=== PATIENT | female | born 1975 | race Caucasian/White ===

== ENCOUNTER 2020-10-04 06:11 | Emergency (ER) | payer SELFPAY ==
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
[2020-10-04 06:31] VITALS: BP 139/76; PULSE 96; RESP 20; TEMP 36.7; O2SAT 96
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
[2020-10-04] MEDS: KETOROLAC (*BKC) 60 MG/2 ML VIAL IM (06:45)
[2020-10-04] MEDS: ONDANSETRON HCL ODT 4 MG TABLET PO (06:46)
[2020-10-04 07:24] LABS: Add Urine Microscopic? NO; Appearance Urine Clear (Clear); Bilirubin Urine Negative (Negative); Blood Urine Negative (Negative); Color Urine Yellow (Yellow); Glucose Urine UA Negative (Negative); Ketones Urine Negative (Negative); Leukocyte Esterase Ur Negative (Negative); Nitrate Urine Negative (Negative); Protein Urine Negative (Negative); Specific Grav Ur <= 1.005 (1.010-1.020); Urobilinogen Urine 0.2 mg/dL (0.2-1.0); pH Urine 5.5 (5.0-8.0)
[2020-10-04 07:42] VITALS: RESP 16
== END 2020-10-04 07:43 | disposition home or self-care (01) ==
PROVIDERS: Emergency Medicine; Emergency Provider Emergency Medicine
DX: S20.01XA Contusion of right breast, initial encounter (principal); V89.2XXA Person injured in unspecified motor-vehicle accident, traffic, initial encounter
CPT/HCPCS: 71101; 81003; 96372; 99283; A9270; J1885

== ENCOUNTER 2023-02-15 18:49 | Emergency (ER) | payer OTHER, SELFPAY ==
[2023-02-15 18:54] VITALS: BP 117/95; PULSE 111; TEMP 36.6; O2SAT 94
--- NOTE | 2023-02-15 19:04 | ED.GENADULT ---
HPI - General Adult General Chief complaint: Wound/Laceration Stated complaint: head laceration Time Seen by Provider: 02/15/23 18:53 History of Present Illness HPI narrative: 47yo woman presents with laceration to center forehead after working on a garage door bracket when a spring came loose and flung up striking her in the forehead. No LOC. Bleeding controlled. Related Data Home Medications Medication Instructions Recorded Confirmed No Home Medications 02/15/23 02/15/23 Allergies Allergy/AdvReac Type Severity Reaction Status Date / Time Penicillins Allergy Unknown Verified 12/29/16 20:23 Review of Systems Review of Systems: All systems reviewed & are unremarkable except as noted in HPI and below Constitutional: Constitutional: Denies chills and Denies fever(s) ENT: Denies dysphagia Cardiovascular: Cardiovascular: Denies chest pain Respiratory: Respiratory: Denies dyspnea PMFSH Past Medical History Medical History Migraine Family History Family History Mother Diabetes mellitus Myocardial infarction Father No problems noted. Social History Social History Smoking packs per day: 1 Smoking cigarettes per day: 20.0 Smoking status: Current every day smoker Tobacco type: cigarettes Exam Const: General: healthy appearing and no acute distress Nutritional Appearance: well nourished HENMT: Other: 5 cm vertical laceration to the center of the forehead. partial thickness. Eyes: Conjunctivae: conjunctivae normal EOM: EOMs intact bilaterally Resp: Effort & Inspection: normal respiratory effort Cardio: Rate: regular rate Skin: General skin exam: normal color, no jaundice and no pallor Neuro: General: patient oriented x3 and moves all extremities Gait exam (Neuro): Normal gait present Course Vital Signs Vital signs: Vital Signs Temperature 36.6 C 02/15/23 18:54 Pulse Rate 111 H 02/15/23 18:54 Blood Pressure 117/95 H 02/15/23 18:54 Pulse Oximetry 94 02/15/23 18:54 Oxygen Delivery Room Air 02/15/23 18:54 Temperature 36.6 C 02/15/23 18:54 Pulse Rate 94 08/10/23 20:06 Respiratory Rate 20 02/15/23 20:06 Blood Pressure 148/88 H 02/15/23 20:06 Pulse Oximetry 98 02/15/23 20:06 Oxygen Delivery Room Air 02/15/23 20:06 Procedures Laceration Laceration 1: Date: 02/15/23 Time: 20:46 Site: scalp Size (cm): 5 Description: linear Depth: involves muscle layer Local Anesthetic: lidocaine 1% and with epi Amount of anesthesia used (mL): 10 Pre-repair: wound explored and irrigated extensively ====== Skin Level ====== Skin layer closed with: vicryl Size (cm): 4-0 Number of sutures: 9 Technique: simple, interrupted and running ====== Subcutaneous Layer ====== Subcutaneous layer closed with: vicryl Size: 4-0 Number of sutures: 3 Technique: simple, interrupted ====== Muscle Layer ====== Muscle layer closed with: vicryl Size: 4-0 Number of sutures: 3 Technique: simple, interrupted ====== Tendon Layer ====== Dressing: nonadherent dressing Medical Decision Making MDM Narrative Medical decision making narrative: laceration, amenable to suture repair, well tolerated DDx contusion, no evidence of muscle involvement, fracture, or intracranial injury Vital Signs Vital Signs: Vital Signs Temperature 36.6 C 02/15/23 18:54 Pulse Rate 111 H 02/15/23 18:54 Blood Pressure 117/95 H 02/15/23 18:54 Pulse Oximetry 94 02/15/23 18:54 Oxygen Delivery Room Air 02/15/23 18:54 Temperature 36.6 C 02/15/23 18:54 Pulse Rate 94 02/15/23 20:06 Respiratory Rate 20 02/15/23 20:06 Blood Pressure
[2023-02-15] MEDS: LIDO 1%/EPINEPHRINE 1:100,000 20 ML VIAL 10 ML INFILTRATE (19:24)
[2023-02-15 20:06] VITALS: BP 148/88; PULSE 94; RESP 20; O2SAT 98
[2023-02-15] MEDS: TETANUS,DIPHTHERIA,AC PERTUSSIS ADULT 0.5 ML (ADACEL) IM (20:09)
[2023-02-15] MEDS: IBUPROFEN 400 MG TABLET 800 MG PO (20:13)
== END 2023-02-15 20:55 | disposition home or self-care (01) ==
PROVIDERS: Emergency Provider Emergency Medicine
DX: S01.81XA Laceration without foreign body of other part of head, initial encounter (principal); Z23 Encounter for immunization; F17.210 Nicotine dependence, cigarettes, uncomplicated; W45.8XXA Other foreign body or object entering through skin, initial encounter
CPT/HCPCS: 13132; 90471; 90715; 99282; A9270

== ENCOUNTER 2023-11-26 07:00 | Outpatient (CLI) | payer BC, SELFPAY ==
[2023-11-26 07:24] LABS: Basophils Absolute Auto 0.09 K/mm3 (0.00-0.10); Basophils Percent Auto 1.1 % (0.0-1.0); Eosinophils Absolute Auto 0.31 K/mm3 (0.02-0.50); Eosinophils Percent Auto 3.8 % (1.0-6.0); Hematocrit 46.6 % (35.0-49.0); Hemoglobin 14.9 g/dL (12.0-15.0); Immature Granulocyte Absolute 0.04 K/mm3 (0.00-0.00); Immature Granulocyte Percent A 0.5 % (0.0-0.0); Lymphocytes Absolute Auto 2.47 K/mm3 (1.10-4.50); Lymphocytes Percent Auto 30.4 % (18.0-42.0); Mean Corpuscular Hemoglobin 29.3 pg (27.0-31.0); Mean Corpuscular Volume 91.6 fL (78.0-102.0); Mean Platelet Volume 12.7 fl (9.2-11.8); Monocytes Absolute Auto 0.56 K/mm3 (0.10-0.90); Monocytes Percent Auto 6.9 % (2.0-11.0); Neutrophils Absolute Auto 4.66 K/mm3 (1.70-7.20); Neutrophils Percent Auto 57.3 % (50.0-70.0); Platelet Count Result 170 K/mm3 (150-420); Red Blood Count 5.09 M/mm3 (4.20-5.40); Red Cell Distribution Width 13.5 % (11.6-14.4); White Blood Count 8.1 K/mm3 (4.8-10.8)
[2023-11-26 23:04] LABS: Alanine Aminotransferase 37 U/L (14-59); Albumin Level 3.5 g/dL (3.4-5.0); Alkaline Phosphatase 93 U/L (46-116); Anion Gap 12 mmol/L (4-12); Aspartate Amino Transferase 39 U/L (15-37); Bilirubin,Total 0.9 mg/dL (0.00-1.00); Blood Urea Nitrogen 15 mg/dL (7-18); Calcium 9.3 mg/dL (8.5-10.1); Carbon Dioxide 24 mmol/L (21-32); Chloride 101 mmol/L (98-108); Cholesterol 288 mg/dL (0-200); Estimated Glomerular Filt Rate > 60; Glucose 91 mg/dL (70-99); HDL Direct 50 mg/dL (40-60); LDL Cholesterol Calculated 216 mg/dL (<130); Osmolality Calculated 284 mOsm/kg (285-295); Potassium 4.7 mmol/L (3.5-5.1); Sodium 137 mmol/L (136-145); Thyroid Stimulating Hormone 1.75 uIU/mL (0.36-3.74); Total Protein 8.2 g/dL (6.4-8.2); Triglycerides 109 mg/dL (0-150)
== END 2023-11-26 07:01 | disposition home or self-care (01) ==
LOC: CHSLAB 07:04
PROVIDERS: PCP Family Medicine; Visit Provider Family Medicine
DX: R53.83 Other fatigue (principal); Z13.220 Encounter for screening for lipoid disorders
CPT/HCPCS: 36415; 80053; 80061; 84443; 85025

== ENCOUNTER 2023-12-04 07:19 | Outpatient (CLI) | payer BC, SELFPAY ==
--- NOTE | ~2023-12-04 | MM_ITS ---
EXAMINATION: MM screening jolanta BI w saqib HISTORY: Screening TECHNIQUE: Craniocaudal and mediolateral oblique 3-D tomosynthesis images were obtained and synthetic 2-D images were generated. CAD analysis was submitted and interpreted. COMPARISON: No prior mammogram is available for comparison at this institution. BREAST PARENCHYMAL COMPOSITION: The breasts are almost entirely fatty. FINDINGS: There is no evidence of suspicious mass, calcification, or architectural distortion to sugg est malignancy in either breast. There has been no suspicious interval change. IMPRESSION: 1. No mammographic evidence of malignancy. 2. Recommend routine screening mammography in one year. BI-RADS Category 1: Negative Reviewed, dictated and finalized at location B.
== END 2023-12-04 07:20 | disposition home or self-care (01) ==
LOC: CHSIMG 07:21
PROVIDERS: PCP Family Medicine; Visit Provider Family Medicine
DX: Z12.31 Encounter for screening mammogram for malignant neoplasm of breast (principal)
CPT/HCPCS: 77063; 77067

== ENCOUNTER 2024-02-23 14:36 | Inpatient (IN) | payer BC, SELFPAY ==
[2024-02-23] VITALS (17 sets, daily range): BP systolic 156–191; BP diastolic 81–98; PULSE 114–128; RESP 18–26; TEMP 36.6–37.3; O2SAT 87–95; BMI 45.2
--- NOTE | ~2024-02-23 | CT_ITS ---
EXAMINATION: CTA chest PE protocol DATE: 02/24/2024 17:46 INDICATION: Hypoxia, tachycardia, cough for 2 weeks. Nondiagnostic 02/23/2024 CT pulmonary scan TECHNIQUE: Computed tomography angiography (CTA) of the chest was performed with 100 mL Omnipaque-350 intravenous contrast timed to evaluate the pulmonary arteries. Coronal maximum intensity projection 3D-reconstructions were created by the technologist. Automated exposure control and iterative reconst ruction technique were employed. Exam dose: 1001.77 mGy-cm total exam DLP. COMPARISON: 02/23/2024 CT pulmonary scan FINDINGS: No CT evidence of pulmonary embolism is identified. Normal size and homogeneous enhancement of the thyroid gland. Bilateral probable reactive mild hilar and mediastinal lymphadenopathy associated with extensive patc hy groundglass infiltrates scattered throughout both upper lobes and middle lobe and superior segment of left lower lobe. IMPRESSION: No pulmonary embolism is detected Extensive prominent groundglass patchy infiltrates involving particularly the upper lobes and middle lobe and superior segment of the left lower, likely due to extensive bilateral pneumonia Reviewed, dictated and finalized at Location A. Reviewed, dictated and finalized at location J. IMPRESSION: No pulmonary embolism is detected Extensive prominent groundglass patchy infiltrates involving particularly the u pper lobes and middle lobe and superior segment of the left lower, likely due t o extensive bilateral pneumonia
--- NOTE | ~2024-02-23 | XR_ITS ---
XR chest 1V portable DATE: 02/23/2024 15:02 INDICATION: Shortness of breath, productive cough TECHNIQUE: Portable AP chest on 02/23/2024 at 1511 hours COMPARISON: 12/29/2016 2 view chest FINDINGS: Normal heart size. There are patchy bilateral pulmonary infiltrates in the central and lower lung zones, left greater th an right, suggesting bilateral pneumonia. Pulmonary edema would be a less likely consideration. No apparent significant pleural effusion. No pneumothorax. IMPRESSION: New bilateral pulmonary infiltrates, probably central and lower lung connolly, left greater than right; pneumonia is suggested given normal heart size Reviewed, dictated and finalized at location J. IMPRESSION: New bilateral pulmonary infiltrates, probably central and lower allen g connolly, left greater than right; pneumonia is suggested given normal heart si ze
--- NOTE | ~2024-02-23 | CT_ITS ---
EXAMINATION: CTA chest PE protocol DATE: 02/23/2024 18:04 INDICATION: Cough for 2 weeks. Tachycardia. Hypoxia. TECHNIQUE: Computed tomography angiography (CTA) of the chest was performed with 100 mL Omnipaque-350 intravenous contrast timed to evaluate the pulmonary arteries. Coronal maximum intensity projection 3D-reconstructions were created by the technologist. Automated exposure control and iterative reconst ruction technique were employed. Exam dose: 965.43 mGy-cm total exam DLP. COMPARISON: 02/23/2024 portable AP chest FINDINGS: Examination is not diagnostic for evaluating pulmonary emboli due to suboptimal contrast en hancement of the pulmonary arteries and considerable respiratory motion. Consider repeat examination when the patient is better able to control breathing or alternatively radiographic bone scan. There are extensive patchy groundglass and consolidative infiltrates throughout much of both lungs, m ost prominent in the upper lobes, especially on the left. There is prevascular, precarinal, left greater than right hilar lymphadenopathy, likely reactive. No thoracic aortic aneurysm or dissection. Normal heart size. No pericardial or pleural effusion. Normal morphology of the adrenal glands. Diffuse idiopathic skeletal hyperostosis of the thoracic and upper lumbar spine. No suspicious osteol ytic or osteoblastic lesions are noted. IMPRESSION: Extensive bilateral pneumonia Nondiagnostic examination for pulmonary emboli; consider repeat examination when the patient is donato r able to cooperate, or radionuclide perfusion scan Reviewed, dictated and finalized at Location [facility]. Reviewed, dictated and finalized at location J. IMPRESSION: Extensive bilateral pneumonia Nondiagnostic examination for pulmonary emboli; consider repeat examination whe n the patient is better able to cooperate, or radionuclide perfusion scan
--- NOTE | 2024-02-23 15:00 | ED.GENADULT ---
HPI - General Adult General Chief complaint: Shortness of Breath/Dyspnea Stated complaint: shortness of breath History of Present Illness HPI narrative: Patient with that past medical history of hypercholesteremia presents to the emergency department with complaint of acute cough. The patient reports that on her around 02/09/2024 she developed a similar cough was seen by her physician or urgent care and was treated with Medrol Dosepak antibiotics and inhaler. Her symptoms subsequently improved, however on or around 02/21 the cough returned. Associated symptoms include rhinorrhea, stress incontinence, and post-tussive emesis. Patient reports the cough is productive for yellow sputum. Patient is feeling superior right chest tightness and squeaking. She denies fever or chills. Denies substernal chest pain. Denies decreased urine output. Related Data Home Medications Medication Instructions Recorded Confirmed albuterol sulfate 90 mcg/actuation 2 inh inhalation Q4-6H PRN sob 02/23/24 02/23/24 aerosol inhaler atorvastatin 80 mg tablet 80 mg PO HS 02/23/24 02/23/24 Allergies Allergy/AdvReac Type Severity Reaction Status Date / Time Penicillins Allergy Unknown Unknown Verified 02/23/24 14:47 [facility] Past Medical History Medical History Migraine Family History Family History Mother Diabetes mellitus Myocardial infarction Father No problems noted. Social History Social History Smoking packs per day: 1 Smoking cigarettes per day: 20.0 Smoking status: Current every day smoker Tobacco type: cigarettes Exam Narrative: GEN: Awake, alert, and appropriate to situation. Coughing. Appears uncomfortable. HEENT: + rhinorrhea noted, mucous membranes moist. No scleral icterus or conjunctival injection. CV: Normal rate, regular rhythm, S1S2 no M/G/R. 2+ distal pulses all extremities. No peripheral edema noted. PULM: Cough but otherwise eupneic. Rales, squeaks, rhonchi on the Right. Left side clear. GI: Abdomen soft, non -tender to palpation. No rigidity, distention or guarding.? NEURO: Normal speech. No lateralizing or focal deficits noted. Course Vital Signs Vital signs: Vital Signs Temperature 37.3 C 02/23/24 14:37 Pulse Rate 125 H 02/23/24 14:37 Respiratory Rate 26 H 02/23/24 14:37 Blood Pressure 191/98 H 02/23/24 14:37 Pulse Oximetry 93 02/23/24 14:37 Oxygen Delivery Room Air 02/23/24 14:37 Temperature 37.3 C 02/23/24 14:37 Pulse Rate 125 H 02/23/24 14:37 Respiratory Rate 26 H 02/23/24 14:37 Blood Pressure 191/98 H 02/23/24 14:37 Pulse Oximetry 93 02/23/24 14:46 Oxygen Delivery Room Air 02/23/24 14:46 Medical Decision Making MDM Narrative Medical decision making narrative: Patient was placed in Room #:?6 Independent Historian: Pt's External Source Review: none Differential diagnosis includes but not limited to:? viral pneumonia, bacterial pneumonia Medications were Reviewed: outpatient medications Independently Interpreted by me: chest x-ray Medications, treatment, ED course: Vital signs show tachycardia and elevated respiratory rate. Physical exam is positive for adventitious lung sounds bilaterally right worse than left. Labs show leukocytosis to 19.1. respiratory panel negative.Initiated sepsis protocol including fluid bolus, antibiotics, blood cultures. Call the hospital service for admission. They accept under obs. Social situation impacting patients care: Lives at home with Shared decision making:? discussed that I am recommending she remain in the hospital for ongoing care Accepting physician: Dr. Josias Montes De Oca DISCHARGE DIAGNOSIS: bacterial pneumonia with sepsis DISPOSITION: observation status in the hospital CONDITION AT DISCHARGE:? stable Vit
[2024-02-23] MEDS: SODIUM CHLORIDE 0.9% IV 1,000 ML 999 ML IV CONT (15:14)
--- NOTE | 2024-02-23 15:14 | PC.NURSE ---
Covid test sent to lab
[2024-02-23 15:20] LABS: Basophils Absolute Auto 0.09 K/mm3 (0.00-0.10); Basophils Percent Auto 0.5 % (0.0-1.0); Eosinophils Absolute Auto 0.62 K/mm3 (0.02-0.50); Eosinophils Percent Auto 3.1 % (1.0-6.0); Hematocrit 44.2 % (35.0-49.0); Hemoglobin 14.7 g/dL (12.0-15.0); Immature Granulocyte Absolute 0.13 K/mm3 (0.00-0.00); Immature Granulocyte Percent A 0.7 % (0.0-0.0); Lymphocytes Absolute Auto 1.64 K/mm3 (1.10-4.50); Lymphocytes Percent Auto 8.3 % (18.0-42.0); Mean Corpuscular HGB Conc 33.3 g/dL (32-36); Mean Corpuscular Hemoglobin 29.5 pg (27.0-31.0); Mean Corpuscular Volume 88.8 fL (78.0-102.0); Mean Platelet Volume 12.1 fl (9.2-11.8); Monocytes Absolute Auto 0.99 K/mm3 (0.10-0.90); Neutrophils Absolute Auto 16.22 K/mm3 (1.70-7.20); Neutrophils Percent Auto 82.4 % (50.0-70.0); Platelet Count Result 243 K/mm3 (150-420); Red Blood Count 4.98 M/mm3 (4.20-5.40); Red Cell Distribution Width 13.5 % (11.6-14.4); White Blood Count 19.7 K/mm3 (4.8-10.8)
[2024-02-23 15:24] LABS: Add Urine Microscopic? NO; Appearance Urine Clear (Clear); Bilirubin Urine Negative (Negative); Blood Urine Negative (Negative); Color Urine Light Yellow (Yellow); Glucose Urine UA Negative (Negative); Ketones Urine Negative (Negative); Leukocyte Esterase Ur Negative (Negative); Nitrate Urine Negative (Negative); Protein Urine Negative (Negative); Urobilinogen Urine 0.2 mg/dL (0.2-1.0); pH Urine 7.5 (5.0-8.0)
[2024-02-23 15:34] LABS: Alanine Aminotransferase 29 U/L (14-59); Albumin Level 3.7 g/dL (3.4-5.0); Alkaline Phosphatase 120 U/L (46-116); Anion Gap 9 mmol/L (4-12); Aspartate Amino Transferase 20 U/L (15-37); Bilirubin,Total 0.2 mg/dL (0.00-1.00); Blood Urea Nitrogen 11 mg/dL (7-18); Calcium 9.6 mg/dL (8.5-10.1); Carbon Dioxide 30 mmol/L (21-32); Chloride 99 mmol/L (98-108); Estimated CRCL calculation 89 ml/min; Estimated Glomerular Filt Rate > 60; Glucose 93 mg/dL (70-99); Osmolality Calculated 285 mOsm/kg (285-295); Potassium 3.8 mmol/L (3.5-5.1); Sodium 138 mmol/L (136-145)
[2024-02-23 16:12] LABS: Influenza A QL RT-PCR Negative (Negative); Influenza B QL RT-PCR Negative (Negative); RSV RNA, RT-PCR Negative (Negative); SARS-CoV-2 RNA PCR Negative (Negative)
[2024-02-23] MEDS: ACETAMINOPHEN 500 MG TABLET 1000 MG PO (17:03)
[2024-02-23] MEDS: AZITHROMYCIN 500 MG/NS 250 ML 500 MG/250 ML BAG 250 MG IVPB (17:16)
[2024-02-23 17:22] LABS: INR 0.9; Partial Thromboplastin Time 27.3 Sec (23.9-30.70); Prothrombin Time 9.6 Seconds (9.50-12.1)
[2024-02-23 17:25] LABS: Lactic Acid Reflex 1.5 mmol/L (0.4-2.0)
--- NOTE | 2024-02-23 17:30 | PC.NURSE ---
Patient arrived to unit in w/c from ED. Patient admitted to room 203. Able to transfer from w/c to bed unassisted. Patient educated on hospital policies and procedures and use of call light and bed controls. Patient educated on visiting hours and fall prevention. Patient and spouse voiced understanding.
[2024-02-23 18:04] LABS: Magnesium 1.8 mg/dL (1.8-2.4)
[2024-02-23] MEDS: IPRATROPIUM 0.5 MG/ALBUTEROL SULFATE 2.5 MG AMPUL.NEB 3 ML INHALATION ×2 (18:31→23:30)
[2024-02-23] MEDS: SODIUM CHLORIDE 0.9% IV 1,000 ML 75 ML IV CONT (19:35)
[2024-02-23] MEDS: guaiFENesin 12 HR 600 MG TABCR 1200 MG PO (20:41)
[2024-02-23] MEDS: BENZONATATE 100 MG CAPSULE PO ×2 (20:42→23:43)
[2024-02-23] MEDS: ATORVASTATIN 40 MG TABLET 80 MG PO (20:42)
[2024-02-23] MEDS: ACETAMINOPHEN 325 MG TABLET 650 MG PO (20:42)
[2024-02-23 20:55] LABS: MRSA (PCR) NOT DETECTED (NOT DETECTE)
--- NOTE | 2024-02-23 23:15 | PC.NURSE ---
Patient NPC continues, sitting on side of bed d/t dyspnea, SPO2 94% on 3L/NC. Call placed to RT to administer nebulizer treatment early for comfort. Hot tea with honey given.
[2024-02-23] MEDS: ONDANSETRON INJ 4 MG/2 ML VIAL IV PUSH (23:43)
[2024-02-24] VITALS (15 sets, daily range): BP systolic 134–164; BP diastolic 63–82; PULSE 99–124; RESP 18–22; TEMP 36.1–37.1; O2SAT 87–98
[2024-02-24] MEDS: ACETAMINOPHEN 325 MG TABLET 650 MG PO ×4 (03:43→21:34)
--- NOTE | 2024-02-24 03:45 | PC.NURSE ---
Patient c/o severe PHAM d/t frequent coughing, declines Labelle d/t narcotics causing her to be sick. PRN Tylenol given with hot pack and warm wash cloth. Patient does state that she can tolerate Toradol, call placed to SENIOR RISK MANAGER, awaiting return call.
[2024-02-24] MEDS: IPRATROPIUM 0.5 MG/ALBUTEROL SULFATE 2.5 MG AMPUL.NEB 3 ML INHALATION ×4 (05:19→18:18)
[2024-02-24] MEDS: KETOROLAC 30 MG/ML VIAL (*BKC) IV PUSH ×2 (06:00→11:22)
[2024-02-24 06:53] LABS: Basophils Absolute Auto 0.09 K/mm3 (0.00-0.10); Basophils Percent Auto 0.5 % (0.0-1.0); Eosinophils Absolute Auto 0.61 K/mm3 (0.02-0.50); Eosinophils Percent Auto 3.4 % (1.0-6.0); Immature Granulocyte Absolute 0.12 K/mm3 (0.00-0.00); Immature Granulocyte Percent A 0.7 % (0.0-0.0); Lymphocytes Absolute Auto 1.58 K/mm3 (1.10-4.50); Lymphocytes Percent Auto 8.8 % (18.0-42.0); Mean Corpuscular HGB Conc 32.4 g/dL (32-36); Mean Corpuscular Hemoglobin 29.4 pg (27.0-31.0); Mean Corpuscular Volume 90.7 fL (78.0-102.0); Mean Platelet Volume 12.5 fl (9.2-11.8); Monocytes Absolute Auto 0.96 K/mm3 (0.10-0.90); Monocytes Percent Auto 5.3 % (2.0-11.0); Neutrophils Absolute Auto 14.67 K/mm3 (1.70-7.20); Neutrophils Percent Auto 81.3 % (50.0-70.0); Platelet Count Result 192 K/mm3 (150-420); Red Blood Count 4.08 M/mm3 (4.20-5.40); Red Cell Distribution Width 13.7 % (11.6-14.4)
[2024-02-24 07:08] LABS: Anion Gap 10 mmol/L (4-12); Blood Urea Nitrogen 7 mg/dL (7-18); Carbon Dioxide 27 mmol/L (21-32); Chloride 102 mmol/L (98-108); Potassium 3.7 mmol/L (3.5-5.1); Sodium 139 mmol/L (136-145)
[2024-02-24 07:09] LABS: Alanine Aminotransferase 25 U/L (14-59); Albumin Level 2.8 g/dL (3.4-5.0); Alkaline Phosphatase 93 U/L (46-116); Aspartate Amino Transferase 27 U/L (15-37); Bilirubin,Total 0.4 mg/dL (0.00-1.00); Calcium 8.4 mg/dL (8.5-10.1); Estimated CRCL calculation 113 ml/min; Estimated Glomerular Filt Rate > 60; Glucose 115 mg/dL (70-99); Osmolality Calculated 287 mOsm/kg (285-295); Total Protein 6.5 g/dL (6.4-8.2)
[2024-02-24] MEDS: BENZONATATE 100 MG CAPSULE PO ×2 (08:14→21:34)
[2024-02-24] MEDS: guaiFENesin 12 HR 600 MG TABCR 1200 MG PO ×2 (08:14→21:34)
[2024-02-24] MEDS: ENOXAPARIN 40 MG/0.4 ML SYRINGE SUB-Q (08:14)
[2024-02-24] MEDS: SODIUM CHLORIDE 0.9% IV 1,000 ML 75 ML IV CONT (09:17)
[2024-02-24] MEDS: ONDANSETRON INJ 4 MG/2 ML VIAL IV PUSH (11:22)
--- NOTE | 2024-02-24 16:30 | PM.IMHP ---
H&P: HPI History of Present Illness Date/Time: 02/24/24 16:30 Chief Complaint: Shortness of Breath Narrative: Patient is a 48-year-old female who presented to the ED with complaints of worsening shortness of breath and productive cough. Patient stated the symptoms began 3 weeks ago with sinus congestion which at that time she went to the urgent care and was diagnosed with a URI and prescribed a z-pack, steroids, and an albuterol inhaler. Patient stated she completed the therapy and was feeling mildly better but a few days later the symptoms had returned. Patient reported shortness of breath and severe coughing spells with fever and chills. Findings in the emergency department showed a WBC of 19, tachycardia, tachypnea, hypoxia, CXR showing bilateral lung infiltrates suggestive of pneumonia. Patient did report she had recently traveled to [place], [place] prior to beginning of symptoms. Patient was admitted to the medical unit for further treatment of acute respiratory failure with hypoxia secondary to pneumonia. Patient COVID/Influenza/RSV wear negative extended respiratory panel pending. Patient did meet for sepsis with HR, RR, WBC, and pneumonia. Blood cultures pending, lactic WNL, and no hypotension. Review of Systems Review of Systems: All systems reviewed & are unremarkable except as noted in HPI and below PMFSH Past Medical History Medical History Migraine Family History Family History Mother Diabetes mellitus Myocardial infarction Father No problems noted. Social History Social History Smoking packs per day: 1 Smoking cigarettes per day: 20.0 Years smoked: 36 Smoking pack-years: 36.00 Smoking status: Current every day smoker Tobacco type: cigarettes Second hand tobacco smoke exposure: Yes Alcohol intake: current Drinks per week: 1 Substance use: never Substance use type: does not use Do You Feel Safe in your Home?: Yes Lack of Transportation: No Lack of Food: Never True Current Housing: I Have Housing Concerned About Future Housing: No Difficulty Paying Gas/Electric Bills: No Difficulty Paying for Meds: No Currently Unemployed: No Education: Trade/Vocational Certificate Difficulty w/ Childcare or Family Care: No Spiritual care concerns: No Meds Home Medications and Allergies Home Medications Medication Instructions Recorded Confirmed Type albuterol sulfate 90 mcg/actuation 2 inh inhalation Q4-6H PRN sob 02/23/24 02/23/24 History aerosol inhaler atorvastatin 80 mg tablet 80 mg PO HS 02/23/24 02/23/24 History Allergies Allergy/AdvReac Type Severity Reaction Status Date / Time Penicillins Allergy Unknown Unknown Verified 02/23/24 14:47 Vital Signs Vital Signs - 24 hr 02/23/24 17:23 02/23/24 17:25 02/23/24 17:25 Temperature 97.8 F Pulse Rate 128 H 127 H Respiratory Rate 22 H Blood Pressure 156/81 H 156/81 H Pulse Oximetry 91 90 90 Oxygen Delivery Room Air Room Air Room Air Oxygen Flow Rate 02/23/24 17:30 02/23/24 18:34 02/23/24 18:48 Temperature Pulse Rate 127 H 116 H 116 H Respiratory Rate 18 18 18 Blood Pressure Pulse Oximetry 87 L 92 92 Oxygen Delivery Room Air Oxygen Flow Rate 2 2 02/23/24 20:00 02/23/24 20:00 02/23/24 23:30 Temperature Pulse Rate 120 H 120 H 114 H Respiratory Rate 18 24 H Blood Pressure Pulse Oximetry 92 95 Oxygen Delivery Room Air Oxygen Flow Rate 2 02/23/24 23:47 02/24/24 00:00 02/24/24 00:00 Temperature 98.7 F Pulse Rate 115 H 110 H 110 H Respiratory Rate 22 H 20 Blood Pressure 138/63 Pulse Oximetry 94 95 Oxygen Delivery Nasal Cannula Oxygen Flow Rate 2 3 02/24/24 04:00 02/24/24 03:40 02/24/24 05:21 Temperature Pulse Rate 111 H 111 H 117 H Respiratory
--- NOTE | 2024-02-24 16:45 | PC.NURSE ---
Called MANAGER INVESTMENT Lisa Izaguirre re: pt condition of continuous cough and pt asking for more nebulizer tx's if possible. MANAGER INVESTMENT given pts vitals and that her SPo2 is 87% and pt has been increased to 4L NC which boosted her O2 to 90%. New orders received from JEREMÍAS Gonzalez for ABG, CTA of chest to be redone and new doses of meds to be given.
[2024-02-24] MEDS: AZITHROMYCIN 500 MG/NS 250 ML 500 MG/250 ML BAG 250 MG IVPB (16:48)
[2024-02-24] MEDS: guaiFENesin/DEXTROMETHORPHAN 5 ML UDC PO ×2 (16:48→19:46)
[2024-02-24] MEDS: methylPREDNISolone SOD SUCC 125 MG VIAL 60 MG IV PUSH (17:00)
[2024-02-24 17:18] LABS: Base Excess ABG -1.3 mmol/L (0-2); HCO3 ABG 23.6 mmol/L (23-29); Oxygen Content ABG 17.9 %vol (16.0-22.0); Oxygen Saturation ABG 94.5 % (95-97); Oxyhemoglobin 93.5 % (94-100); PCO2 ABG 40.5 mmHg (35-45); PO2 ABG 76.7 mmHg (80-90); pH ABG 7.38 (7.35-7.45)
--- NOTE | 2024-02-24 17:26 | PC.NURSE ---
Xray notified that pt has new IV site started in her Lt AC and is ready for CTA.
[2024-02-24 17:32] LABS: Device NASAL CANNULA; Modified Allen's Test Pass; Site Drawn LEFT RADIAL
--- NOTE | 2024-02-24 17:42 | PC.NURSE ---
Patient coughing continuously during 1600 rounds. VS showed SPO2 at 87% on 3L n/c. Dialysis Technician increased O2 to 4L and SPO2 improved to 90 to 91. Patient's Pulse elevated at 121. Patient continues on telemetry. RUSSIAN TEACHER notified of patient's condition and new orders obtained for a one time duo neb and a dose of solumedrol. Dialysis Technician administered both. Patient c/o pain above the site of her IV and policy writer sales discovered that it had infiltrated. Charge nurse replaced LFA IV with 20 g in LAC. New orders for ABGs and CTA also completed. Patient sitting on bedside trying to eat at this time.
--- NOTE | 2024-02-24 18:28 | PC.NURSE ---
RT stopped nurse in patient's room and asked if we could get PRN nebs for patient and stated that patient is likely to need nebs more often. Nurse told RT that charge nurse had called a couple hours ago and asked and ENGINE ROOM HELPER gave a 1 time order and that it was administered about an hour ago.
[2024-02-24] MEDS: hydrOXYzine pamoate 25 MG CAPSULE PO (21:34)
[2024-02-24] MEDS: ATORVASTATIN 40 MG TABLET 80 MG PO (21:34)
--- NOTE | 2024-02-24 22:50 | PC.NURSE ---
Coughing and SOB continues, PRN medications have limited short term effectiveness.
[2024-02-25] VITALS (17 sets, daily range): BP systolic 131–140; BP diastolic 66–72; PULSE 81–117; RESP 16–158; TEMP 36.2–36.8; O2SAT 91–98
[2024-02-25] MEDS: IPRATROPIUM 0.5 MG/ALBUTEROL SULFATE 2.5 MG AMPUL.NEB 3 ML INHALATION ×4 (00:01→16:29)
[2024-02-25] MEDS: SODIUM CHLORIDE 0.9% IV 1,000 ML 75 ML IV CONT (00:16)
[2024-02-25] MEDS: guaiFENesin/DEXTROMETHORPHAN 5 ML UDC PO ×5 (00:16→20:46)
[2024-02-25] MEDS: ONDANSETRON INJ 4 MG/2 ML VIAL IV PUSH (00:16)
[2024-02-25 05:26] LABS: Alanine Aminotransferase 26 U/L (14-59); Albumin Level 2.5 g/dL (3.4-5.0); Alkaline Phosphatase 90 U/L (46-116); Anion Gap 7 mmol/L (4-12); Aspartate Amino Transferase 31 U/L (15-37); Bilirubin,Total 0.2 mg/dL (0.00-1.00); Blood Urea Nitrogen 8 mg/dL (7-18); Calcium 8.5 mg/dL (8.5-10.1); Carbon Dioxide 28 mmol/L (21-32); Chloride 105 mmol/L (98-108); Estimated CRCL calculation 115 ml/min; Estimated Glomerular Filt Rate > 60; Glucose 131 mg/dL (70-99); Osmolality Calculated 290 mOsm/kg (285-295); Potassium 4.2 mmol/L (3.5-5.1); Sodium 140 mmol/L (136-145); Total Protein 6.4 g/dL (6.4-8.2)
[2024-02-25 05:31] LABS: Basophils Absolute Auto 0.04 K/mm3 (0.00-0.10); Basophils Percent Auto 0.2 % (0.0-1.0); Eosinophils Absolute Auto 0.03 K/mm3 (0.02-0.50); Eosinophils Percent Auto 0.2 % (1.0-6.0); Hematocrit 34.8 % (35.0-49.0); Hemoglobin 11.4 g/dL (12.0-15.0); Immature Granulocyte Absolute 0.29 K/mm3 (0.00-0.00); Immature Granulocyte Percent A 1.6 % (0.0-0.0); Lymphocytes Absolute Auto 0.84 K/mm3 (1.10-4.50); Lymphocytes Percent Auto 4.7 % (18.0-42.0); Mean Corpuscular HGB Conc 32.8 g/dL (32-36); Mean Corpuscular Hemoglobin 29.8 pg (27.0-31.0); Mean Corpuscular Volume 91.1 fL (78.0-102.0); Mean Platelet Volume 12.9 fl (9.2-11.8); Monocytes Absolute Auto 0.43 K/mm3 (0.10-0.90); Monocytes Percent Auto 2.4 % (2.0-11.0); Neutrophils Absolute Auto 16.12 K/mm3 (1.70-7.20); Neutrophils Percent Auto 90.9 % (50.0-70.0); Platelet Count Result 193 K/mm3 (150-420); Red Blood Count 3.82 M/mm3 (4.20-5.40); White Blood Count 17.8 K/mm3 (4.8-10.8)
--- NOTE | 2024-02-25 09:09 | P.PNIM_ITS ---
Progress Note: A&P Assessment and Plan (1) COPD with exacerbation: Code(s): J44.1 - Chronic obstructive pulmonary disease with (acute) exacerbation Status: Acute Assessment and Plan: COPD exacerbation * Bronchodilators. * Chest x-ray * Guaifenesin * With tests and for productive cough * incentive spirometry while awake. * steroids initiated * azithromycin 500 x 1 day/250 daily * supplemental oxygen therapy to maintain oxygen 92%S * Evaluation from home O2 if saturation less than 88% on room air. * Smoking cessation counseling done (2) Sepsis: Code(s): A41.9 - Sepsis, unspecified organism Status: Acute Assessment and Plan: Sepsis without septic shock * HR, RR, WBC, with Pneumonia * IV fluid resuscitation. 30mg/kg for septic shock * CXR/CTA with extensive bilateral infiltrates * reassessment of volume status/tissue perfusion * empiric IV antibiotic therapy/Rocephin and azithromycin * Monitor lactic acid levels q6hr. WNL * Repeat CBC, CMP. * Two sets of blood cultures pending * urine cultures. Negative * C-reactive proteins elevated * PTT and PT, INR. * Steroid initiated due to secondary COPD exacerbation. (3) Acute respiratory failure with hypoxia: Code(s): J96.01 - Acute respiratory failure with hypoxia Status: Acute Assessment and Plan: Acute respiratory failure with hypoxia * Secondary to pneumonia well as COPD exacerbation * Supple oxygen to maintain SpO2 92% wean as tolerated * Continue to treat for pneumonia and COPD exacerbation as stated above * CTA negative PE (4) Pneumonia: Code(s): J18.9 - Pneumonia, unspecified organism Status: Acute Assessment and Plan: Pneumonia * Bronchodilators. * Chest x-ray extensive bilateral infiltrates * CTA negative for PE/bilateral infiltrates upper and lower lobe * incentive spirometry while awake. * sputum culture pending * influenza/COVID/RSV negative * respiratory panel pending * antibiotic therapy Rocephin and azithromycin * MRSA negative * supplemental oxygen therapy to maintain oxygen 92% * Smoking cessation counseling done * CMP/CBC daily (5) Migraine: Code(s): G43.909 - Migraine, unspecified, not intractable, without status migrainosus Status: Acute Assessment and Plan: Migraine-Resolving * Secondary to Hypertensive on admission/severe productive cough * Stabilize BP with hydralazine push * Toradol p.r.n. * Acetaminophen p.r.n. Plan Code status: Full code per patient DVT prophylaxis: Lovenox Stress ulcer prophylaxis: NA PT/OT notes: Ambulatory Disposition: Patient continues admission to the medical unit for sepsis with pneumonia in COPD exacerbation and acute respiratory with hypoxia. Will continue with current treatment plan monitor for improvement respiratory status. Patient is ambulatory on own plan will be to discharge back home when medically stable. Time Spent With Patient Time with patient: 15 - 25 minutes Subjective Date/time seen: 02/25/24 09:09 Interval history: Patient is a 48-year-old female who presented to the ED with complaints of worsening shortness of breath and productive cough. Patient stated the symptoms began 3 weeks ago with sinus congestion which at that time she went to the urgent care and was diagnosed with a URI and prescribed a z-pack, steroids, and an albuterol inhaler. Patient stated she completed the therap
--- NOTE | 2024-02-25 09:09 | PM.IMPN ---
Progress Note: A&P Assessment and Plan (1) COPD with exacerbation: Code(s): J44.1 - Chronic obstructive pulmonary disease with (acute) exacerbation Status: Acute Assessment and Plan: COPD exacerbation Bronchodilators. Chest x-ray Guaifenesin With tests and for productive cough incentive spirometry while awake. steroids initiated azithromycin 500 x 1 day/250 daily supplemental oxygen therapy to maintain oxygen 92%S Evaluation from home O2 if saturation less than 88% on room air. Smoking cessation counseling done (2) Sepsis: Code(s): A41.9 - Sepsis, unspecified organism Status: Acute Assessment and Plan: Sepsis without septic shock HR, RR, WBC, with Pneumonia IV fluid resuscitation. 30mg/kg for septic shock CXR/CTA with extensive bilateral infiltrates reassessment of volume status/tissue perfusion empiric IV antibiotic therapy/Rocephin and azithromycin Monitor lactic acid levels q6hr. WNL Repeat CBC, CMP. Two sets of blood cultures pending urine cultures. Negative C-reactive proteins elevated PTT and PT, INR. Steroid initiated due to secondary COPD exacerbation. (3) Acute respiratory failure with hypoxia: Code(s): J96.01 - Acute respiratory failure with hypoxia Status: Acute Assessment and Plan: Acute respiratory failure with hypoxia Secondary to pneumonia well as COPD exacerbation Supple oxygen to maintain SpO2 92% wean as tolerated Continue to treat for pneumonia and COPD exacerbation as stated above CTA negative PE (4) Pneumonia: Code(s): J18.9 - Pneumonia, unspecified organism Status: Acute Assessment and Plan: Pneumonia Bronchodilators. Chest x-ray extensive bilateral infiltrates CTA negative for PE/bilateral infiltrates upper and lower lobe incentive spirometry while awake. sputum culture pending influenza/COVID/RSV negative respiratory panel pending antibiotic therapy Rocephin and azithromycin MRSA negative supplemental oxygen therapy to maintain oxygen 92% Smoking cessation counseling done CMP/CBC daily (5) Migraine: Code(s): G43.909 - Migraine, unspecified, not intractable, without status migrainosus Status: Acute Assessment and Plan: Migraine-Resolving Secondary to Hypertensive on admission/severe productive cough Stabilize BP with hydralazine push Toradol p.r.n. Acetaminophen p.r.n. Plan Code status: Full code per patient DVT prophylaxis: Lovenox Stress ulcer prophylaxis: NA PT/OT notes: Ambulatory Disposition: Patient continues admission to the medical unit for sepsis with pneumonia in COPD exacerbation and acute respiratory with hypoxia. Will continue with current treatment plan monitor for improvement respiratory status. Patient is ambulatory on own plan will be to discharge back home when medically stable. Time Spent With Patient Time with patient: 15 - 25 minutes Subjective Date/time seen: 02/25/24 09:09 Interval history: Patient is a 48-year-old female who presented to the ED with complaints of worsening shortness of breath and productive cough. Patient stated the symptoms began 3 weeks ago with sinus congestion which at that time she went to the urgent care and was diagnosed with a URI and prescribed a z-pack, steroids, and an albuterol inhaler. Patient stated she completed the therapy and was feeling mildly better but a few days later the symptoms had returned. Patient reported shortness of breath and severe coughing spells with fever and chills. Findings in the emergency department showed a WBC of 19, tachycardia, tachypnea, hypoxia, CXR showing bilateral lung infiltrates suggestive of pneumonia. Patient did report she had recently traveled to [place], [place] prior to beginning of symptoms. Patient was admitted to the medical unit for further treatment of acute respiratory failure with hyp
[2024-02-25] MEDS: methylPREDNISolone SOD SUCC 125 MG VIAL 60 MG IV PUSH ×3 (09:20→17:15)
[2024-02-25] MEDS: guaiFENesin 12 HR 600 MG TABCR 1200 MG PO ×2 (09:21→20:45)
[2024-02-25] MEDS: ENOXAPARIN 40 MG/0.4 ML SYRINGE SUB-Q (09:21)
--- NOTE | 2024-02-25 13:32 | PC.NURSE ---
Pt solumedrol at 1300 would not scan. RO
[2024-02-25] MEDS: AZITHROMYCIN 500 MG/NS 250 ML 500 MG/250 ML BAG 250 MG IVPB (17:15)
--- NOTE | 2024-02-25 17:30 | PC.NURSE ---
Patient reported burning with Azithromycin infusing, IV site checked, site not infiltrated and site flushed well. Attemped to run medicine at slower rate, patient cont. to report burning/pain. spoke with associate director financial aid Pilar. N. O. received to change to P.O. Azithromycin.
[2024-02-25] MEDS: FAMOTIDINE 20 MG TABLET PO (18:29)
[2024-02-25] MEDS: ACETAMINOPHEN 325 MG TABLET 650 MG PO (20:45)
[2024-02-25] MEDS: hydrOXYzine pamoate 25 MG CAPSULE PO (20:45)
[2024-02-25] MEDS: ATORVASTATIN 40 MG TABLET 80 MG PO (20:45)
[2024-02-26] VITALS (16 sets, daily range): BP systolic 123–134; BP diastolic 67–73; PULSE 85–106; RESP 14–20; TEMP 36.4–36.7; O2SAT 90–98
[2024-02-26] MEDS: guaiFENesin/DEXTROMETHORPHAN 5 ML UDC PO (00:20)
[2024-02-26] MEDS: IPRATROPIUM 0.5 MG/ALBUTEROL SULFATE 2.5 MG AMPUL.NEB 3 ML INHALATION ×5 (00:20→16:51)
[2024-02-26] MEDS: ONDANSETRON INJ 4 MG/2 ML VIAL IV PUSH (00:20)
[2024-02-26] MEDS: BENZONATATE 100 MG CAPSULE PO (00:20)
[2024-02-26 05:23] LABS: Basophils Absolute Auto 0.02 K/mm3 (0.00-0.10); Basophils Percent Auto 0.1 % (0.0-1.0); Hematocrit 33.7 % (35.0-49.0); Hemoglobin 10.8 g/dL (12.0-15.0); Immature Granulocyte Absolute 0.11 K/mm3 (0.00-0.00); Immature Granulocyte Percent A 0.6 % (0.0-0.0); Lymphocytes Absolute Auto 1.41 K/mm3 (1.10-4.50); Lymphocytes Percent Auto 7.4 % (18.0-42.0); Mean Corpuscular Volume 90.3 fL (78.0-102.0); Mean Platelet Volume 12.3 fl (9.2-11.8); Monocytes Absolute Auto 0.79 K/mm3 (0.10-0.90); Monocytes Percent Auto 4.1 % (2.0-11.0); Neutrophils Absolute Auto 16.74 K/mm3 (1.70-7.20); Neutrophils Percent Auto 87.8 % (50.0-70.0); Platelet Count Result 201 K/mm3 (150-420); Red Blood Count 3.73 M/mm3 (4.20-5.40); Red Cell Distribution Width 14.1 % (11.6-14.4); White Blood Count 19.1 K/mm3 (4.8-10.8)
[2024-02-26 05:52] LABS: Alanine Aminotransferase 31 U/L (14-59); Albumin Level 2.4 g/dL (3.4-5.0); Alkaline Phosphatase 78 U/L (46-116); Anion Gap 5 mmol/L (4-12); Aspartate Amino Transferase 24 U/L (15-37); Blood Urea Nitrogen 9 mg/dL (7-18); Calcium 8.7 mg/dL (8.5-10.1); Carbon Dioxide 29 mmol/L (21-32); Chloride 106 mmol/L (98-108); Estimated CRCL calculation 115 ml/min; Estimated Glomerular Filt Rate > 60; Glucose 153 mg/dL (70-99); Osmolality Calculated 291 mOsm/kg (285-295); Potassium 4.3 mmol/L (3.5-5.1); Sodium 140 mmol/L (136-145); Total Protein 6.3 g/dL (6.4-8.2)
[2024-02-26 06:04] LABS: Bilirubin,Total 0.2 mg/dL (0.00-1.00)
[2024-02-26] MEDS: AZITHROMYCIN 250 MG TABLET PO (09:20)
[2024-02-26] MEDS: guaiFENesin 12 HR 600 MG TABCR 1200 MG PO ×2 (09:20→21:03)
[2024-02-26] MEDS: FAMOTIDINE 20 MG TABLET PO ×2 (09:20→20:31)
--- NOTE | 2024-02-26 09:21 | P.PNIM_ITS ---
Progress Note: A&P Assessment and Plan (1) COPD with exacerbation: Code(s): J44.1 - Chronic obstructive pulmonary disease with (acute) exacerbation Status: Acute Assessment and Plan: COPD exacerbation * Bronchodilators. * Chest x-ray * Guaifenesin * With tests and for productive cough * incentive spirometry while awake. * steroids initiated * azithromycin 500 x 1 day/250 daily * supplemental oxygen therapy to maintain oxygen 92%S * Evaluation from home O2 if saturation less than 88% on room air. * Smoking cessation counseling done 02/26/24: * de-escalated steroids to 40mg daily * Azithro switched to PO patient reported burning to IV site * Pulmicort Q12 (2) Sepsis: Code(s): A41.9 - Sepsis, unspecified organism Status: Acute Assessment and Plan: Sepsis without septic shock-Resolving * HR, RR, WBC, with Pneumonia * IV fluid resuscitation. 30mg/kg for septic shock * CXR/CTA with extensive bilateral infiltrates * reassessment of volume status/tissue perfusion * empiric IV antibiotic therapy/Rocephin and azithromycin * Monitor lactic acid levels q6hr. WNL * Repeat CBC, CMP. * Two sets of blood cultures pending * urine cultures. Negative * C-reactive proteins elevated * PTT and PT, INR. * Steroid initiated due to secondary COPD exacerbation. (3) Acute respiratory failure with hypoxia: Code(s): J96.01 - Acute respiratory failure with hypoxia Status: Acute Assessment and Plan: Acute respiratory failure with hypoxia * Secondary to pneumonia well as COPD exacerbation * Supple oxygen to maintain SpO2 92% wean as tolerated * Continue to treat for pneumonia and COPD exacerbation as stated above * CTA negative PE 02/26/24: * Still requiring 4 L NC * worse with activity put recovers as rest * CPT * May need home 02 study prior to discharge if unable to wean (4) Pneumonia: Code(s): J18.9 - Pneumonia, unspecified organism Status: Acute Assessment and Plan: Pneumonia * Bronchodilators. * Chest x-ray extensive bilateral infiltrates * CTA negative for PE/bilateral infiltrates upper and lower lobe * incentive spirometry while awake. * sputum culture pending * influenza/COVID/RSV negative * respiratory panel pending * antibiotic therapy Rocephin and azithromycin * MRSA negative * supplemental oxygen therapy to maintain oxygen 92% * Smoking cessation counseling done * CMP/CBC daily 02/26/2024 * Respiratory panel and sputum pending * Azithro switched to PO * bump in WBC likely reactive to steroids de-escalated to PO daily * Continue to wean Oxygen as tolerated on 4 L NC (5) Migraine: Code(s): G43.909 - Migraine, unspecified, not intractable, without status migrainosus Status: Acute Assessment and Plan: Migraine-Resolving * Secondary to Hypertensive on admission/severe productive cough * Stabilize BP with hydralazine push * Toradol p.r.n. * Acetaminophen p.r.n. Plan Code status: Full code per patient DVT prophylaxis: Lovenox Stress ulcer prophylaxis: NA PT/OT notes: Ambulatory Disposition: Patient continues admission to the medical unit for sepsis with pneumonia in COPD exacerbation and acute respiratory with hypoxia. Will continue with current treatment plan monitor for improvement respiratory status. Patient is ambulatory on own plan will be to discharge back home when medically stable.
--- NOTE | 2024-02-26 09:21 | PM.IMPN ---
Progress Note: A&P Assessment and Plan (1) COPD with exacerbation: Code(s): J44.1 - Chronic obstructive pulmonary disease with (acute) exacerbation Status: Acute Assessment and Plan: COPD exacerbation Bronchodilators. Chest x-ray Guaifenesin With tests and for productive cough incentive spirometry while awake. steroids initiated azithromycin 500 x 1 day/250 daily supplemental oxygen therapy to maintain oxygen 92%S Evaluation from home O2 if saturation less than 88% on room air. Smoking cessation counseling done 02/26/24: de-escalated steroids to 40mg daily Azithro switched to PO patient reported burning to IV site Pulmicort Q12 (2) Sepsis: Code(s): A41.9 - Sepsis, unspecified organism Status: Acute Assessment and Plan: Sepsis without septic shock-Resolving HR, RR, WBC, with Pneumonia IV fluid resuscitation. 30mg/kg for septic shock CXR/CTA with extensive bilateral infiltrates reassessment of volume status/tissue perfusion empiric IV antibiotic therapy/Rocephin and azithromycin Monitor lactic acid levels q6hr. WNL Repeat CBC, CMP. Two sets of blood cultures pending urine cultures. Negative C-reactive proteins elevated PTT and PT, INR. Steroid initiated due to secondary COPD exacerbation. (3) Acute respiratory failure with hypoxia: Code(s): J96.01 - Acute respiratory failure with hypoxia Status: Acute Assessment and Plan: Acute respiratory failure with hypoxia Secondary to pneumonia well as COPD exacerbation Supple oxygen to maintain SpO2 92% wean as tolerated Continue to treat for pneumonia and COPD exacerbation as stated above CTA negative PE 02/26/24: Still requiring 4 L NC worse with activity put recovers as rest CPT May need home 02 study prior to discharge if unable to wean (4) Pneumonia: Code(s): J18.9 - Pneumonia, unspecified organism Status: Acute Assessment and Plan: Pneumonia Bronchodilators. Chest x-ray extensive bilateral infiltrates CTA negative for PE/bilateral infiltrates upper and lower lobe incentive spirometry while awake. sputum culture pending influenza/COVID/RSV negative respiratory panel pending antibiotic therapy Rocephin and azithromycin MRSA negative supplemental oxygen therapy to maintain oxygen 92% Smoking cessation counseling done CMP/CBC daily 02/26/2024 Respiratory panel and sputum pending Azithro switched to PO bump in WBC likely reactive to steroids de-escalated to PO daily Continue to wean Oxygen as tolerated on 4 L NC (5) Migraine: Code(s): G43.909 - Migraine, unspecified, not intractable, without status migrainosus Status: Acute Assessment and Plan: Migraine-Resolving Secondary to Hypertensive on admission/severe productive cough Stabilize BP with hydralazine push Toradol p.r.n. Acetaminophen p.r.n. Plan Code status: Full code per patient DVT prophylaxis: Lovenox Stress ulcer prophylaxis: NA PT/OT notes: Ambulatory Disposition: Patient continues admission to the medical unit for sepsis with pneumonia in COPD exacerbation and acute respiratory with hypoxia. Will continue with current treatment plan monitor for improvement respiratory status. Patient is ambulatory on own plan will be to discharge back home when medically stable. Time Spent With Patient Time with patient: 15 - 25 minutes Subjective Date/time seen: 02/26/24 09:21 Interval history: Patient is a 48-year-old female who presented to the ED with complaints of worsening shortness of breath and productive cough. Patient stated the symptoms began 3 weeks ago with sinus congestion which at that time she went to the urgent care and was diagnosed with a URI and prescribed a z-pack, steroids, and an albuterol inhaler. Patient stated she completed the therapy and was feeling mildly better but a few da
[2024-02-26] MEDS: ACETAMINOPHEN 325 MG TABLET 650 MG PO ×2 (09:34→20:31)
[2024-02-26] MEDS: BUDESONIDE RESPULE NEB 0.5 MG/2 ML AMP INHALATION ×2 (11:07→16:51)
[2024-02-26] MEDS: methylPREDNISolone SOD SUCC 125 MG VIAL 60 MG IV PUSH (11:28)
--- NOTE | 2024-02-26 11:29 | PC.NURSE ---
Pt given the Solumedrol IVP at 0900. It is now discontinued.
--- NOTE | 2024-02-26 20:25 | PC.NURSE ---
SPO2 at 98% on 4L/NC, O2 decreased to 3L/NC with SPO2 96%, pt able to remove O2 and ambulate to bathroom with SPO2 maintaining around 92%. Will continue to titrate slowly.
[2024-02-26] MEDS: ATORVASTATIN 40 MG TABLET 80 MG PO (20:31)
[2024-02-26] MEDS: hydrOXYzine pamoate 25 MG CAPSULE PO (20:31)
[2024-02-27] VITALS (13 sets, daily range): BP systolic 122–154; BP diastolic 73–93; PULSE 72–99; RESP 16–20; TEMP 36.1–36.3; O2SAT 95–100
[2024-02-27] MEDS: IPRATROPIUM 0.5 MG/ALBUTEROL SULFATE 2.5 MG AMPUL.NEB 3 ML INHALATION ×4 (00:39→16:49)
--- NOTE | 2024-02-27 00:40 | PC.NURSE ---
Pt given a duoneb treatment which she tolerated well.
--- NOTE | 2024-02-27 02:35 | PC.NURSE ---
Pt asleep and respirations remain even and unlabored. No signs of respiratory distress noted.
--- NOTE | 2024-02-27 04:06 | PC.NURSE ---
Pt asleep and no signs of shortness of breath noted.
[2024-02-27 05:18] LABS: Basophils Absolute Auto 0.02 K/mm3 (0.00-0.10); Basophils Percent Auto 0.2 % (0.0-1.0); Eosinophils Absolute Auto 0.05 K/mm3 (0.02-0.50); Eosinophils Percent Auto 0.4 % (1.0-6.0); Hematocrit 34.6 % (35.0-49.0); Hemoglobin 10.8 g/dL (12.0-15.0); Immature Granulocyte Absolute 0.09 K/mm3 (0.00-0.00); Immature Granulocyte Percent A 0.7 % (0.0-0.0); Lymphocytes Absolute Auto 3.38 K/mm3 (1.10-4.50); Mean Corpuscular HGB Conc 31.2 g/dL (32-36); Mean Corpuscular Hemoglobin 28.9 pg (27.0-31.0); Mean Corpuscular Volume 92.5 fL (78.0-102.0); Mean Platelet Volume 12.6 fl (9.2-11.8); Monocytes Percent Auto 6.4 % (2.0-11.0); Neutrophils Absolute Auto 8.16 K/mm3 (1.70-7.20); Neutrophils Percent Auto 65.3 % (50.0-70.0); Platelet Count Result 209 K/mm3 (150-420); Red Blood Count 3.74 M/mm3 (4.20-5.40); Red Cell Distribution Width 14.1 % (11.6-14.4); White Blood Count 12.5 K/mm3 (4.8-10.8)
[2024-02-27] MEDS: BUDESONIDE RESPULE NEB 0.5 MG/2 ML AMP INHALATION ×2 (05:29→16:49)
[2024-02-27 05:35] LABS: Alanine Aminotransferase 39 U/L (14-59); Albumin Level 2.4 g/dL (3.4-5.0); Alkaline Phosphatase 75 U/L (46-116); Anion Gap 4 mmol/L (4-12); Aspartate Amino Transferase 20 U/L (15-37); Bilirubin,Total 0.1 mg/dL (0.00-1.00); Blood Urea Nitrogen 11 mg/dL (7-18); Calcium 8.7 mg/dL (8.5-10.1); Carbon Dioxide 33 mmol/L (21-32); Chloride 104 mmol/L (98-108); Estimated CRCL calculation 107 ml/min; Estimated Glomerular Filt Rate > 60; Glucose 108 mg/dL (70-99); Osmolality Calculated 292 mOsm/kg (285-295); Potassium 4.5 mmol/L (3.5-5.1); Sodium 141 mmol/L (136-145); Total Protein 6.2 g/dL (6.4-8.2)
--- NOTE | 2024-02-27 06:04 | PC.NURSE ---
Pt up to the bathroom per self to void.
--- NOTE | 2024-02-27 07:25 | P.PNIM_ITS ---
Progress Note: A&P Assessment and Plan (1) COPD with exacerbation: Code(s): J44.1 - Chronic obstructive pulmonary disease with (acute) exacerbation Status: Acute Assessment and Plan: COPD exacerbation * Bronchodilators. * Chest x-ray * Guaifenesin * With tests and for productive cough * incentive spirometry while awake. * steroids initiated * azithromycin 500 x 1 day/250 daily * supplemental oxygen therapy to maintain oxygen 92%S * Evaluation from home O2 if saturation less than 88% on room air. * Smoking cessation counseling done 02/26/24: * de-escalated steroids to 40mg daily * Azithro switched to PO patient reported burning to IV site * Pulmicort Q12 02/26: continue with plan of care. Smoking cessation education discussed. The patient has not smoked since admission. She reports one craving since admission. Will further investigate if she is ready to quit and would like resources. (2) Sepsis: Code(s): A41.9 - Sepsis, unspecified organism Status: Acute Assessment and Plan: Sepsis without septic shock-Resolving * HR, RR, WBC, with Pneumonia * IV fluid resuscitation. 30mg/kg for septic shock * CXR/CTA with extensive bilateral infiltrates * reassessment of volume status/tissue perfusion * empiric IV antibiotic therapy/Rocephin and azithromycin * Monitor lactic acid levels q6hr. WNL * Repeat CBC, CMP. * Two sets of blood cultures pending * urine cultures. Negative * C-reactive proteins elevated * PTT and PT, INR * Steroid initiated due to secondary COPD exacerbation. (3) Acute respiratory failure with hypoxia: Code(s): J96.01 - Acute respiratory failure with hypoxia Status: Acute Assessment and Plan: Acute respiratory failure with hypoxia * Secondary to pneumonia well as COPD exacerbation * Supple oxygen to maintain SpO2 92% wean as tolerated * Continue to treat for pneumonia and COPD exacerbation as stated above * CTA negative PE 02/26/24: * Still requiring 4 L NC * worse with activity put recovers as rest * CPT * May need home 02 study prior to discharge if unable to wean 02/26: Improving. Currently on room air and no de-escalation with activity. (4) Pneumonia: Code(s): J18.9 - Pneumonia, unspecified organism Status: Acute Assessment and Plan: Pneumonia * Bronchodilators. * Chest x-ray extensive bilateral infiltrates * CTA negative for PE/bilateral infiltrates upper and lower lobe * incentive spirometry while awake. * sputum culture pending * influenza/COVID/RSV negative * respiratory panel pending * antibiotic therapy Rocephin and azithromycin * MRSA negative * supplemental oxygen therapy to maintain oxygen 92% * Smoking cessation counseling done * CMP/CBC daily 02/26/2024 * Respiratory panel and sputum pending * Azithro switched to PO * bump in WBC likely reactive to steroids de-escalated to PO daily * Continue to wean Oxygen as tolerated on 4 L NC 02/26: Continue with current plan of care (5) Migraine: Code(s): G43.909 - Migraine, unspecified, not intractable, without status migrainosus Status: Acute Assessment and Plan: Migraine-Resolving * Secondary to Hypertensive on admission/severe productive cough * Stabilize BP with hydralazine push * Toradol p.r.n. * Acetaminophen p.r.n. Plan Code status: Full code per patient DVT prophylaxis: Lovenox Stress ulcer prophylaxis: NA PT/OT notes: Am
--- NOTE | 2024-02-27 07:25 | PM.IMPN ---
Progress Note: A&P Assessment and Plan (1) COPD with exacerbation: Code(s): J44.1 - Chronic obstructive pulmonary disease with (acute) exacerbation Status: Acute Assessment and Plan: COPD exacerbation Bronchodilators. Chest x-ray Guaifenesin With tests and for productive cough incentive spirometry while awake. steroids initiated azithromycin 500 x 1 day/250 daily supplemental oxygen therapy to maintain oxygen 92%S Evaluation from home O2 if saturation less than 88% on room air. Smoking cessation counseling done 02/26/24: de-escalated steroids to 40mg daily Azithro switched to PO patient reported burning to IV site Pulmicort Q12 02/26: continue with plan of care. Smoking cessation education discussed. The patient has not smoked since admission. She reports one craving since admission. Will further investigate if she is ready to quit and would like resources. (2) Sepsis: Code(s): A41.9 - Sepsis, unspecified organism Status: Acute Assessment and Plan: Sepsis without septic shock-Resolving HR, RR, WBC, with Pneumonia IV fluid resuscitation. 30mg/kg for septic shock CXR/CTA with extensive bilateral infiltrates reassessment of volume status/tissue perfusion empiric IV antibiotic therapy/Rocephin and azithromycin Monitor lactic acid levels q6hr. WNL Repeat CBC, CMP. Two sets of blood cultures pending urine cultures. Negative C-reactive proteins elevated PTT and PT, INR Steroid initiated due to secondary COPD exacerbation. (3) Acute respiratory failure with hypoxia: Code(s): J96.01 - Acute respiratory failure with hypoxia Status: Acute Assessment and Plan: Acute respiratory failure with hypoxia Secondary to pneumonia well as COPD exacerbation Supple oxygen to maintain SpO2 92% wean as tolerated Continue to treat for pneumonia and COPD exacerbation as stated above CTA negative PE 02/26/24: Still requiring 4 L NC worse with activity put recovers as rest CPT May need home 02 study prior to discharge if unable to wean 02/26: Improving. Currently on room air and no de-escalation with activity. (4) Pneumonia: Code(s): J18.9 - Pneumonia, unspecified organism Status: Acute Assessment and Plan: Pneumonia Bronchodilators. Chest x-ray extensive bilateral infiltrates CTA negative for PE/bilateral infiltrates upper and lower lobe incentive spirometry while awake. sputum culture pending influenza/COVID/RSV negative respiratory panel pending antibiotic therapy Rocephin and azithromycin MRSA negative supplemental oxygen therapy to maintain oxygen 92% Smoking cessation counseling done CMP/CBC daily 02/26/2024 Respiratory panel and sputum pending Azithro switched to PO bump in WBC likely reactive to steroids de-escalated to PO daily Continue to wean Oxygen as tolerated on 4 L NC 02/26: Continue with current plan of care (5) Migraine: Code(s): G43.909 - Migraine, unspecified, not intractable, without status migrainosus Status: Acute Assessment and Plan: Migraine-Resolving Secondary to Hypertensive on admission/severe productive cough Stabilize BP with hydralazine push Toradol p.r.n. Acetaminophen p.r.n. Plan Code status: Full code per patient DVT prophylaxis: Lovenox Stress ulcer prophylaxis: NA PT/OT notes: Ambulatory Disposition: Patient continues admission to the medical unit for sepsis with pneumonia in COPD exacerbation and acute respiratory with hypoxia. Will continue with current treatment plan monitor for improvement respiratory status. Patient is ambulatory on own plan will be to discharge back home when medically stable. Subjective Date/time seen: 02/27/24 07:25 Interval history: Patient is a 48-year-old female who presented to the ED with complaints of worsening shortness of breath and productive cough. P
[2024-02-27] MEDS: FAMOTIDINE 20 MG TABLET PO ×2 (08:12→20:38)
[2024-02-27] MEDS: ACETAMINOPHEN 325 MG TABLET 650 MG PO ×2 (08:13→12:03)
[2024-02-27] MEDS: AZITHROMYCIN 250 MG TABLET PO (08:13)
[2024-02-27] MEDS: predniSONE 20 MG TABLET 40 MG PO (08:13)
[2024-02-27] MEDS: guaiFENesin 12 HR 600 MG TABCR 1200 MG PO ×2 (08:13→20:39)
--- NOTE | 2024-02-27 09:40 | PC.NURSE ---
Pt noted having coughing spell, PRN Robitussin DM given per request, SPO2 at 96% on room air, patient is leaving O2 off at longer intervals, only applying if SPO2 below 92%.
[2024-02-27] MEDS: guaiFENesin/DEXTROMETHORPHAN 5 ML UDC PO ×2 (09:41→20:38)
[2024-02-27] MEDS: hydrOXYzine pamoate 25 MG CAPSULE PO (20:38)
[2024-02-27] MEDS: ATORVASTATIN 40 MG TABLET 80 MG PO (20:39)
[2024-02-28] VITALS: BP 141/83; PULSE 75; RESP 18; TEMP 36; O2SAT 97
[2024-02-28 00:28] VITALS: PULSE 70; RESP 16; O2SAT 95
[2024-02-28] MEDS: IPRATROPIUM 0.5 MG/ALBUTEROL SULFATE 2.5 MG AMPUL.NEB 3 ML INHALATION ×2 (00:29→05:29)
[2024-02-28 00:45] VITALS: PULSE 80; RESP 18; O2SAT 98
[2024-02-28 05:13] LABS: Basophils Absolute Auto 0.04 K/mm3 (0.00-0.10); Basophils Percent Auto 0.4 % (0.0-1.0); Eosinophils Absolute Auto 0.34 K/mm3 (0.02-0.50); Eosinophils Percent Auto 3.1 % (1.0-6.0); Hematocrit 37.9 % (35.0-49.0); Hemoglobin 12.2 g/dL (12.0-15.0); Immature Granulocyte Absolute 0.11 K/mm3 (0.00-0.00); Lymphocytes Absolute Auto 4.39 K/mm3 (1.10-4.50); Lymphocytes Percent Auto 39.4 % (18.0-42.0); Mean Corpuscular HGB Conc 32.2 g/dL (32-36); Mean Corpuscular Hemoglobin 29.3 pg (27.0-31.0); Mean Corpuscular Volume 90.9 fL (78.0-102.0); Mean Platelet Volume 11.9 fl (9.2-11.8); Monocytes Absolute Auto 0.87 K/mm3 (0.10-0.90); Monocytes Percent Auto 7.8 % (2.0-11.0); Neutrophils Absolute Auto 5.39 K/mm3 (1.70-7.20); Neutrophils Percent Auto 48.3 % (50.0-70.0); Nucleated Red Blood Cells Absolute Auto 0.02 K/mm3 (0.00-0.00); Nucleated Red Blood Cells Perc 0.2 % (0-0.0); Platelet Count Result 246 K/mm3 (150-420); Red Blood Count 4.17 M/mm3 (4.20-5.40); White Blood Count 11.1 K/mm3 (4.8-10.8)
[2024-02-28] MEDS: BUDESONIDE RESPULE NEB 0.5 MG/2 ML AMP INHALATION (05:29)
[2024-02-28 05:30] VITALS: PULSE 92; RESP 16; O2SAT 96
[2024-02-28 05:46] VITALS: PULSE 76; RESP 16; O2SAT 99
[2024-02-28 05:51] LABS: Alanine Aminotransferase 44 U/L (14-59); Albumin Level 2.7 g/dL (3.4-5.0); Alkaline Phosphatase 87 U/L (46-116); Anion Gap 6 mmol/L (4-12); Aspartate Amino Transferase 20 U/L (15-37); Bilirubin,Total 0.2 mg/dL (0.00-1.00); Blood Urea Nitrogen 14 mg/dL (7-18); Calcium 8.9 mg/dL (8.5-10.1); Carbon Dioxide 32 mmol/L (21-32); Chloride 101 mmol/L (98-108); Estimated CRCL calculation 104 ml/min; Estimated Glomerular Filt Rate > 60; Glucose 85 mg/dL (70-99); Osmolality Calculated 287 mOsm/kg (285-295); Potassium 4.3 mmol/L (3.5-5.1); Sodium 139 mmol/L (136-145); Total Protein 6.6 g/dL (6.4-8.2)
[2024-02-28 08:00] VITALS: BP 132/72; PULSE 90; RESP 20; TEMP 36.3; O2SAT 96
[2024-02-28] MEDS: AZITHROMYCIN 250 MG TABLET PO (08:45)
[2024-02-28] MEDS: FAMOTIDINE 20 MG TABLET PO (08:45)
[2024-02-28] MEDS: guaiFENesin 12 HR 600 MG TABCR 1200 MG PO (08:45)
[2024-02-28] MEDS: predniSONE 20 MG TABLET 40 MG PO (08:45)
--- NOTE | 2024-02-28 08:54 | PM.DS ---
DS: Admitting Diagnosis Discharge Date 02/28/2024 Admitting Diagnosis Pneumonia, Sepsis, DS: Discharge Diagnosis Discharge Diagnosis (1) COPD with exacerbation: Code(s): J44.1 - Chronic obstructive pulmonary disease with (acute) exacerbation Status: Acute (2) Sepsis: Code(s): A41.9 - Sepsis, unspecified organism Status: Acute (3) Acute respiratory failure with hypoxia: Code(s): J96.01 - Acute respiratory failure with hypoxia Status: Acute (4) Pneumonia: Code(s): J18.9 - Pneumonia, unspecified organism Status: Acute DS: Summary Hospital Course Reason for hospitalization: COPD exacerbation, Sepsis, Pneumonia Hospital Course: This is a 48 year old female that was admitted to the hospitial with Pneumonia and Sepsis. Patient was treated with IV Fluids and IV antibiotics as well as she required breathing treatment with IV Steroids. Patient initally required Supplemental oxygen. Patient subsequently has been weaned and I have personally encouraged her to stop smoking. Patient has a past medical history of hypertension, smoking, migraines. Patient has continued to improve moving air . Patient informs me that she is a lot better claims that she feels better to going home. She has been weaned from her oxygen . patient has a inhaler at home and currently she has pneumonia as I have ordered oral antibioitics with steroids. Patient labs reviewed WBC improved from 19.7- 11.6 and she has remained afebrile. She will follow up with her primary care provider Time Spent with Patient Time attestation: Total time spent providing and/or coordinating discharge services: Exam Narrative: GEN: Awake, alert, and appropriate to situation. Coughing. Appears uncomfortable. HEENT: + rhinorrhea noted, mucous membranes moist. No scleral icterus or conjunctival injection. CV: Normal rate, regular rhythm, S1S2 no M/G/R. 2+ distal pulses all extremities. No peripheral edema noted. PULM: Cough but otherwise eupneic. scattered wheezes rhonchi on the Right. Left side clear. GI: Abdomen soft, non -tender to palpation. No rigidity, distention or guarding.? NEURO: Normal speech. No lateralizing or focal deficits noted. DS: Data Data Completed and Pending Labs on day of discharge: Labs from last 24 hours 02/28/24 05:01 WBC 11.1 H RBC 4.17 L Hgb 12.2 Hct 37.9 MCV 90.9 MCH 29.3 MCHC 32.2 RDW 14.0 Plt Count 246 MPV 11.9 H Immature Gran % (Auto) 1.0 H Neut % (Auto) 48.3 L Lymph % (Auto) 39.4 Nicholas % (Auto) 7.8 Eos % (Auto) 3.1 Baso % (Auto) 0.4 Lymph # (Auto) 4.39 Nicholas # (Auto) 0.87 Eos # (Auto) 0.34 Baso # (Auto) 0.04 Abs Immat Gran (auto) 0.11 H Absolute Neuts (auto) 5.39 Absolute Nucleated RBC 0.02 H Nucleated RBC % 0.2 H Sodium 139 Potassium 4.3 Chloride 101 Carbon Dioxide 32 Anion Gap 6 BUN 14 Creatinine 0.69 Estim Creat Clear Calc 104 Estimated GFR > 60 Glucose 85 Calculated Osmolality 287 Calcium 8.9 Total Bilirubin 0.2 AST 20 ALT 44 Alkaline Phosphatase 87 Total Protein 6.6 Albumin 2.7 L Preliminary micro results at discharge 02/23/24 20:44 Blood Culture - Preliminary Blood 02/23/24 20:44 Blood Culture - Preliminary Blood Discharge Plan Discharge Attending physician on discharge: Anil Montes De Oca Consulting providers: Lisa Izaguirre; Sis Gaxiola; Eric Arenas; Cory Lima Discharging Clinician: Eric Arenas Anticipated Discharge Date/Time: 02/28/24 08:46 Patient Disposition: Home, Self-Care Activity: may shower, unlimited and as tolerated Diet: regular Patient Instructions: Antibiotic Form, Benzonatate (By mouth), Prednisone (By mouth), Azithromycin (By mouth), How to Stop Smoking (DC), Cigarette Smoking and Your Health (GEN), Sepsis (DC), Bacterial Pneumonia (DC), Fall Prevention (DC), Chronic Lung Disease and Infection Prevention (DC) Stand Alone Forms: General
--- NOTE | 2024-02-28 10:25 | PC.NURSE ---
Discharge instructions reviewed with patient, patient verbalizes understanding. Patient transported off floor per wheelchair, all belongings removed from room with patient.
[2024-02-28 16:38] LABS: Pneumococcal Antigen Urine NOT DETECTED
--- NOTE | 2024-03-03 12:53 | PC.NURSE ---
Discharge call back completed, care was excellent, no questions regarding dc instructions, feeling much better
[2024-03-18 01:34] LABS: Legionella pneumophila Ag Ur NOT DETECTED
== END 2024-02-28 11:15 | disposition home or self-care (01) | DRG 871 ==
LOC: CHSED 15:29 → CHS2ND 16:52
PROVIDERS: Nurse Practitioner Family; Admitting Provider Internal Medicine; Emergency Provider Family Medicine; PCP Family Medicine; Visit Provider Nurse Practitioner Acute Care
DX: A41.9 Sepsis, unspecified organism (principal); J18.9 Pneumonia, unspecified organism; J96.01 Acute respiratory failure with hypoxia; J44.1 Chronic obstructive pulmonary disease with (acute) exacerbation; J44.0 Chronic obstructive pulmonary disease with (acute) lower respiratory infection; G43.909 Migraine, unspecified, not intractable, without status migrainosus; F17.210 Nicotine dependence, cigarettes, uncomplicated
CPT/HCPCS: 36415; 36569; 36600; 71045; 71275; 80053; 81003; 82805; 83605; 83735; 85025; 85610; 85730; 86140; 86738; 87040; 87070; 87205; 87449; 87637; 87641; 87899; 94640; 96361; 96365; 96367; 96376; 99285; A9270; G0378; J0456; J0696; J1650; J1885; J2405; J2919; J7030; J7040; J7512; Q9967

== ENCOUNTER 2024-03-12 08:40 | Outpatient (CLI) | payer BC, SELFPAY ==
--- NOTE | ~2024-03-12 | XR_ITS ---
Clinical Indication: Cough PA and lateral views of the chest: Comparison: 02/23/2024 Findings: Calcified left basilar granuloma present. The lungs are otherwise clear, without evidence o f focal consolidation or pleural effusion. Cardiomediastinal silhouette is within normal limits. Bon es and soft tissues are unremarkable. Impression: No acute abnormality evident. Reviewed, dictated and finalized at location . Impression: No acute abnormality evident.
== END 2024-03-12 08:41 | disposition home or self-care (01) ==
PROVIDERS: PCP Family Medicine; Visit Provider Family Medicine
DX: R05.1 Acute cough (principal)
CPT/HCPCS: 71046

== ENCOUNTER 2024-05-01 09:02 | Outpatient (CLI) | payer BC, SELFPAY ==
--- NOTE | ~2024-05-01 | XR_ITS ---
XR chest 2V 05/01/2024 09:16 Indication: Acute cough Procedure: 2 view chest Comparison: Comparison to multiple prior studies sequentially, with oldest reviewed study dated 02/18. Findings: Heart size normal. Right lung clear. Calcified granuloma left lower thorax. No focal air sp garret disease, pulmonary edema, pleural effusion or suspected pneumothorax. Impression: 1: No acute cardiopulmonary disease. Reviewed, dictated and finalized at location B. Impression: 1: No acute cardiopulmonary disease.
== END 2024-05-01 09:03 | disposition home or self-care (01) ==
LOC: CHSIMG 09:03
PROVIDERS: PCP Family Medicine; Visit Provider Family Medicine
DX: R05.1 Acute cough (principal)
CPT/HCPCS: 71046

== ENCOUNTER 2024-08-14 15:51 | Emergency (ER) | payer BC, SELFPAY ==
--- NOTE | ~2024-08-14 | XR_ITS ---
XR chest 1V portable 08/14/2024 16:11 Indication: Shortness of breath Procedure: AP portable chest Comparison: Comparison to multiple prior studies sequentially, with oldest reviewed study dated 02/22. Findings: Diffuse bilateral interstitial infiltrates with peribronchial thickening. No pleural effusi on or pneumothorax. No acute osseous abnormality. Heart size normal. Impression: 1: Diffuse bilateral interstitial infiltrates which may reflect edema or atypical pneumonia. Reviewed, dictated and finalized at location B. E [facility] Impression: 1: Diffuse bilateral interstitial infiltrates which may reflect edema or atypic al pneumonia.
[2024-08-14 15:51] VITALS: BP 130/91; PULSE 118; RESP 22; TEMP 37.2; O2SAT 95
--- OUTSIDE RECORDS SUMMARY | 2024-08-14 15:56 | XMS_ITS | Clinical Summary ---
Author Organization [facility] Address [address] [place] [address] Phone Care Team Providers Care Foreign Banknote Teller Trader Name Role Phone Provider, None Primary Care Provider Unavailabl e Allergies Active Allergy Reactions Criticality Noted Date Comments Penicillins Hives 09/28/2021 Medications No known medications Social History Tobacco Use Types Packs/Day Years Used Date Smoking Tobacco: Never Assessed Smokeless Tobacco: Never Alcohol Use Standard Drinks/Week Comments Not Currently 0 (1 standard drink = 0.6 oz pur e alcohol) Comments No Sex and Gender Information Value Date Recorded Sex Assigned at Not on file Legal Sex Female 12:10 PM CDT Gender Identity Not on file Sexual Orientation Not on file Last Filed Vital Signs Vital Sign Reading Time Taken Comments Blood Pressure 136/85 09/28/2021 3:30 PM CDT Pulse 92 09/28/2021 4:00 PM CDT Temperature 36.7 C (98 F) 09/28/2021 12:27 PM CDT Respiratory Rate 26 09/28/2021 4:00 PM CDT Oxygen Saturation 98% 09/28/2021 12:30 PM CDT Inhaled Oxygen Concentration - - Weight 90.7 kg (200 lb) 09/28/2021 12:27 PM CDT Height 167.6 cm (5' 6 ) 09/28/2021 12:27 PM CDT Body Mass Index 32.28 09/28/2021 12:27 PM CDT Plan of Treatment Health Maintenance Due Date Last Done Comments Hepatitis C Virus (HCV) Screening 1974 TdaP Immunization 1974 Hepatitis B Immunization (1 of 3 - 19+ 3-dose series) 1993 Pap Smear 1995 Cervical Cancer Screening (CCS) 2004 HPV/Cotest 2004 Discussion re Starting/Frequency of Mammograms 2014 Colonoscopy 2019 Colorectal Cancer Screening 2019 Influenza Immunization (#1) 2024 SARS-COV-2 Immunization ( season) 2024 08/11/2020, 07/21/2020 Cologuard 2024 Immunochemical Fecal Occult Blood 2024 Respiratory Syncytial Virus (RSV) Immunization (Adult) (1 - 1-dose 75+ series) 2049 Meningococcal Immunization (ACWY) Aged Out No longer eligible b ased on patient's age to complete this topic Pneumococcal Immunization Combined Aged Out No longer eligible b ased on patient's age to complete this topic Rotavirus Immunization Aged Out No lo nger eligible based on patient's age to complete this topic Insurance Care Teams Foreign Banknote Teller Trader Relationship Specialty Start Date End Date Provider, None [place] PCP - General 09/28/21
--- OUTSIDE RECORDS SUMMARY | 2024-08-14 15:56 | XMS_ITS | Clinical Summary ---
Author Organization [facility] Address [facility] [place] [address] Care Team Providers Care Plate Cleaner Name Role Phone None, Provider MD Primary Care Provider Unavaila ble Allergies Active Allergy Reactions Criticality Noted Date Comments Penicillins Hives 03/06/2021 Medications No known medications Active Problems No known active problems Social History Tobacco Use Types Packs/Day Years Used Date Smoking Tobacco: Every Day Cigarettes Smokeless Tobacco: Never Alcohol Use Standard Drinks/Week Comments Yes 0 (1 standard drink = 0.6 oz pur e alcohol) raraely Comments No Sex and Gender Information Value Date Recorded Sex Assigned at Not on file Legal Sex Female 12:48 PM CDT Gender Identity Not on file Sexual Orientation Not on file Last Filed Vital Signs Vital Sign Reading Time Taken Comments Blood Pressure 98/56 03/06/2021 4:00 PM CDT Pulse 88 03/06/2021 4:00 PM CDT Temperature 36.6 C (97.9 F) 03/06/2021 1:29 PM CDT Respiratory Rate 25 03/06/2021 4:00 PM CDT Oxygen Saturation 100% 03/06/2021 4:00 PM CDT Inhaled Oxygen Concentration - - Weight 104.3 kg (230 lb) 03/06/2021 1:29 PM CDT Height 160 cm (5' 3 ) 03/06/2021 1:29 PM CDT Body Mass Index 40.74 03/06/2021 1:29 PM CDT Plan of Treatment Health Maintenance Due Date Last Done Comments Cervical Cancer Screening Pa p Smear (Age 30 to 64) Every 3 Years 1974 Colorectal Cancer Screening Colonoscopy (10 Years) 1974 Annual Physical 1977 Hepatitis C 1992 DTaP, Tdap and Td Vaccines ( 1 - Tdap) 1993 Hepatitis B Vaccines (1 of 3 - 19+ 3-dose series) 1993 Cervical Cancer Screening John burns with HPV Testing (Age 30 to 64) Every 5 Years 2004 Cervical Cancer Screening wi th HPV 2004 Mammogram Screening 2014 COVID-19 Vaccine (2023-2 5 season) 2024 08/11/2020, 07/21/2020 Influenza Adult (#1) 2024 Meningococcal B Vaccine Aged Out No l onger eligible based on patient's age to complete this topic Meningococcal Vaccine Aged Out No maximilian michelle eligible based on patient's age to complete this topic Pneumococcal Vaccine: Pediatrics (0 to 5 Years) and At-Risk Patients (6 to 64 Years) Aged Out No longer eligible b ased on patient's age to complete this topic RSV Immunizations Under 20 Months Aged Out No longer eligible b ased on patient's age to complete this topic Care Teams Plate Cleaner Relationship Specialty Start Date End Date None, Provider, PCP - General 03/06/21
[2024-08-14 15:58] VITALS: O2SAT 95
[2024-08-14 16:15] VITALS: PULSE 83; RESP 20; O2SAT 95
[2024-08-14] MEDS: IPRATROPIUM 0.5 MG/ALBUTEROL SULFATE 2.5 MG AMPUL.NEB 3 ML INHALATION (16:18)
[2024-08-14 16:24] LABS: Basophils Absolute Auto 0.04 K/mm3 (0.00-0.10); Basophils Percent Auto 0.6 % (0.0-1.0); Eosinophils Absolute Auto 0.02 K/mm3 (0.02-0.50); Eosinophils Percent Auto 0.3 % (1.0-6.0); Hematocrit 44.7 % (35.0-49.0); Hemoglobin 14.3 g/dL (12.0-15.0); Immature Granulocyte Absolute 0.04 K/mm3 (0.00-0.00); Immature Granulocyte Percent A 0.6 % (0.0-0.0); Lymphocytes Absolute Auto 0.68 K/mm3 (1.10-4.50); Lymphocytes Percent Auto 10.9 % (18.0-42.0); Mean Corpuscular Hemoglobin 28.2 pg (27.0-31.0); Mean Corpuscular Volume 88.2 fL (78.0-102.0); Mean Platelet Volume 11.7 fl (9.2-11.8); Monocytes Absolute Auto 0.64 K/mm3 (0.10-0.90); Monocytes Percent Auto 10.3 % (2.0-11.0); Neutrophils Absolute Auto 4.82 K/mm3 (1.70-7.20); Neutrophils Percent Auto 77.3 % (50.0-70.0); Platelet Count Result 255 K/mm3 (150-420); Red Blood Count 5.07 M/mm3 (4.20-5.40); White Blood Count 6.2 K/mm3 (4.8-10.8)
[2024-08-14 16:25] VITALS: PULSE 88; RESP 20; O2SAT 98
[2024-08-14] MEDS: methylPREDNISolone ACETATE 40 MG/ML VIAL 80 MG IM (16:35)
--- OUTSIDE RECORDS SUMMARY | 2024-08-14 16:36 | XMS_ITS | Clinical Summary ---
Author Organization [facility] Address [address] [place] [address] Phone Care Team Providers Care Carpenter Cradle And Dolly Name Role Phone Provider, None Primary Care [...] to complete this topic Insurance Care Teams Carpenter Cradle And Dolly Relationship Specialty Start Date End Date Provider, None [place] PCP - General 09/28/21
--- OUTSIDE RECORDS SUMMARY | 2024-08-14 16:36 | XMS_ITS | Clinical Summary ---
Author Organization [facility] Address [facility] [place] [address] Care Team Providers Care Derrick Boat Lever Operator Name Role Phone None, Provider MD Primary [...] age to complete this topic Care Teams Derrick Boat Lever Operator Relationship Specialty Start Date End Date None, Provider, PCP - General 03/06/21
[2024-08-14 16:39] LABS: Alanine Aminotransferase 23 U/L (14-59); Albumin Level 3.7 g/dL (3.4-5.0); Alkaline Phosphatase 91 U/L (46-116); Anion Gap 9 mmol/L (4-12); Aspartate Amino Transferase 21 U/L (15-37); Bilirubin,Total 0.2 mg/dL (0.00-1.00); Blood Urea Nitrogen 10 mg/dL (7-18); Calcium 9.2 mg/dL (8.5-10.1); Carbon Dioxide 28 mmol/L (21-32); Chloride 103 mmol/L (98-108); Estimated Glomerular Filt Rate > 60; Glucose 84 mg/dL (70-99); Osmolality Calculated 288 mOsm/kg (285-295); Potassium 4.3 mmol/L (3.5-5.1); Sodium 140 mmol/L (136-145)
[2024-08-14 16:44] LABS: Lactic Acid Reflex 1.1 mmol/L (0.4-2.0)
--- NOTE | 2024-08-14 16:56 | ED_ITS ---
HPI - URI/Sore Throat General Chief Complaint: Upper Respiratory Infection Stated Complaint: congestion, cough Time Seen by Provider: 08/14/24 15:56 Source: patient Mode of arrival: ambulatory Limitations: no limitations History of Present Illness HPI Narrative: this a 48-year-old female with some recently diagnosed with some upper respiratory tract infection presents with continued cough and congestion was prescribed an inhaler/ antibiotics and steroids by her primary 3 days ago. Currently saturations 98% on room air rest of her vitals are stable afebrile no chest pain. MD elicited complaint: cough and nasal congestion Onset (ago): day(s) Consistency: constant Severity: moderate Related Data Home Medications ?Medication ?Instructions ?Recorded ?Confirmed ?Last Taken ?Type atorvastatin 80 mg tablet 80 mg PO HS 02/23/24 02/23/24 Unknown History Allergies Allergy/AdvReac Type Severity Reaction Status Date / Time Penicillins Allergy Unknown Unknown Verified 08/14/24 15:55 Review of Systems 2 Review of Systems: All systems reviewed & are unremarkable except as noted in HPI and below PMFSH Past Medical History Medical History Migraine Family History Family History Mother Diabetes mellitus Myocardial infarction Father No problems noted. Social History Social History Smoking packs per day: 1 Smoking cigarettes per day: 20.0 Years smoked: 36 Smoking pack-years: 36.00 Smoking status: Current every day smoker Tobacco type: cigarettes Second hand tobacco smoke exposure: Yes Alcohol intake: current Drinks per week: 1 Substance use: never Substance use type: does not use Do You Feel Safe in your Home?: Yes Lack of Transportation: No Lack of Food: Never True Current Housing: I Have Housing Concerned About Future Housing: No Difficulty Paying Gas/Electric Bills: No Difficulty Paying for Meds: No Currently Unemployed: No Education: Trade/Vocational Certificate Difficulty w/ Childcare or Family Care: No Spiritual care concerns: No Exam 2 Const: General: no acute distress Nutritional Appearance: well nourished and obese Orientation/consciousness: patient oriented x3 Limitations: no limitations HENMT: Head: normal to inspection Chest: Chest palpation & inspection: normal inspection of the chest Resp: Effort & Inspection: normal respiratory effort Auscultation: wheezes Cardio: Rate: regular rate Rhythm: regular rhythm GI: GI Palp: Yes Soft to palpation Back/Spine/Pelvis: Back: no CVA tenderness Skin: General skin exam: normal color Rashes: no rashes Course Course Emergency Course: Patient had chest x-ray that shows typical pneumonia normal white count patient received a breathing treatment will add Levaquin to her medical regimen and Tessalon Perles. Vital Signs Vital signs: Vital Signs Pulse Oximetry 95 08/14/24 15:58 Oxygen Delivery Room Air 08/14/24 15:58 Pulse Rate 88 08/14/24 16:25 Respiratory Rate 20 08/14/24 16:25 Pulse Oximetry 98 08/14/24 16:25 Oxygen Delivery Room Air 08/14/24 15:58 MDM - URI/Sore Throat Lab Data 08/14/24 16:14 08/14/24 16:14 Labs: Lab Results 08/14/24 Range/Units 16:14 WBC 6.2 (4.8-10.8) K/mm3 RBC 5.07 (4.20-5.40) M/mm3 Hgb 14.3 (12.0-15.0) g/dL Hct 44.7 (35.0-49.0) % MCV 88.2 (78.0-102.0) fL MCH 28.2 (27.0-31.0) pg MCHC 32.0 (32-36) g/dL RDW 14.0 (11.6-14.4) % Plt Count 255 (150-420) K/mm3 MPV 11.7 (9.2-11.8) fl Immature Gran % (Auto) 0.6 H (0.0-0.0) % Neut % (Auto) 77.3 H (50.0-70.0) % Lymph % (Auto) 10.9 L (18.0-42.0) % [place] % (Auto) 10.3 (2.0-11.0) % Eos % (Auto) 0.3 L (1.0-6.0) % Baso % (Auto) 0.6 (0.0-1.0) % Lymph # (Auto) 0.68 L (1.10-4.50) K/mm3 [place] # (Auto) 0.64 (0.10-0.90) K/mm3 Eos # (Auto) 0.02 (0.02-0.50) K/mm3 Baso # (Auto) 0.04 (0.00-0.10) K/mm3 Abs Immat Gran (auto) 0.04 H (0.00-0.00) K/mm3 Absolute Neuts (auto) 4.82 (1.70-7.20) K/mm3 Absolute Nucleated RBC 0.00 (0.00-0.00) K/mm3 Nucleated RBC % 0.0 (0-0.0) % Sodium 140 (136-145) mmol/L Potassium 4.3 (3.5-5.1) mmol/L Chloride 103 (98-108) mmol/L Carbon Dioxide 28 (21-32) mmol/L Anion Gap 9 (4-12) mmol/L BUN 10 (7-18) mg/dL Creatinine 0.77 (0.55-1.02) mg/dL Estim Creat Clear Calc Not Reportable Estimated GFR > 60 (59 - ) Glucose 84 (70-99) mg/dL Calculated Osmolality 288 (285-295) mOsm/kg Lactic Acid 1.1 (0.4-2.0) mmol/L Calcium 9.2 (8.5-10.1) mg/dL Total Bilirubin 0.2 (0.00-1.00) mg/dL AST 21 (15-37) U/L ALT 23 (14-59) U/L Alkaline Phosphatase 91 (46-116) U/L Total Protein 8.0 (6.4-8.2) g/dL Albumin 3.7 (3.4-5.0) g/dL Critical Care Time Critical Care Time Critical Care Time: No Discharge Plan Discharge Clinical Impression: Upper respiratory infection Qualifiers: URI type: unspecified URI Qualified Code(s): J06.9 - Acute upper respiratory infection, unspecified Patient Disposition: Home, Self-Care Condition: Stable Instructions: Antibiotic Form, Upper Respiratory Infection (ED) Additional Instructions: advised take medicine as prescribed and follow with primary if symptoms persist or worsen. Patient Language: Thai Prescriptions: New levofloxacin 500 mg tablet 500 mg PO DAILY 7 Days Qty: 7 0RF dextromethorphan polistirex [Robitussin ER] 30 mg/5 mL suspension,extended rel 12 hr 10 ml PO Q12H PRN (Reason: cough) 5 Days Qty: 89 0RF No Action atorvastatin 80 mg tablet 80 mg PO HS azithromycin [Zithromax] 250 mg Tablet 250 mg PO DAILY Qty: 6 0RF benzonatate 100 mg Capsule 100 mg PO TID PRN (Reason: Cough) Qty: 20 0RF budesonide [Pulmicort] 0.5 mg/2 mL Suspension For Nebulization 0.5 mg inhalation Q12HRT Qty: 2 0RF albuterol sulfate 90 mcg/actuation HFA aerosol inhaler 2 inh INHALATION Q4-6H PRN (Reason: sob) Qty: 8.6 0RF methylprednisolone [Medrol (Patricio)] 4 mg tablets,dose pack See Rx Instructions .ROUTE .COMPLEX Qty: 21 0RF Rx Instructions: orally per package directions Qvar RediHaler 80 mcg/actuation HFA aerosol breath activated 1 inh inhalation Q12H Qty: 10.6 0RF Follow-up/Referrals: Royer Alberto MD [Primary Care Provider] - Time of Disposition: 17:01
[2024-08-14 17:10] VITALS: BP 143/94; PULSE 111; RESP 20; TEMP 37.8; O2SAT 97
[2024-08-14 17:19] VITALS: BP 143/94; PULSE 111; RESP 20; TEMP 37.8; O2SAT 97
--- NOTE | 2024-08-16 13:49 | PC.NURSE ---
preliminary blood culture, no growth
--- NOTE | 2024-08-20 12:45 | PC.NURSE ---
FINAL BLOOD CULTURE RESULTS X2: NO GROWTH AFTER 5 DAYS.
== END 2024-08-14 17:10 | disposition home or self-care (01) ==
PROVIDERS: Emergency Provider Emergency Medicine; PCP Family Medicine
DX: J06.9 Acute upper respiratory infection, unspecified (principal); F17.210 Nicotine dependence, cigarettes, uncomplicated
CPT/HCPCS: 36415; 71045; 80053; 83605; 85025; 87040; 94640; 96372; 99283; J1010

== ENCOUNTER 2024-12-01 16:09 | Emergency (ER) | payer BC, SELFPAY ==
[2024-12-01 16:10] VITALS: BP 160/82; PULSE 98; RESP 18; TEMP 36.7; O2SAT 97
--- OUTSIDE RECORDS SUMMARY | 2024-12-01 16:11 | XMS_ITS | Clinical Summary ---
Author Organization [facility] Address [address] [place] [address] Phone Care Team Providers Care Uniform Attendant Name Role Phone Provider, None Primary Care [...] 12:27 PM CDT Height 167.6 cm (5' 6) 09/28/2021 12:27 PM CDT Body Mass Index [...] to complete this topic Insurance Care Teams Uniform Attendant Relationship Specialty Start Date End Date Provider, None [place] PCP - General 09/28/21
[2024-12-01] MEDS: ONDANSETRON INJ 4 MG/2 ML VIAL IM (16:23)
[2024-12-01] MEDS: dexAMETHasone SOD PHOS INJ 10 MG/ML 1 ML VIAL IM (16:24)
[2024-12-01] MEDS: KETOROLAC (*BKC) 60 MG/2 ML VIAL IM (16:25)
[2024-12-01] MEDS: diazePAM INJ (*CRX) 10 MG/2 ML SYRINGE 5 MG IM (16:26)
--- OUTSIDE RECORDS SUMMARY | 2024-12-01 16:54 | XMS_ITS | Clinical Summary ---
Author Organization [facility] Address [address] [place] [address] Phone Care Team Providers Care Assistant Store Manager Name Role Phone Provider, None Primary Care [...] to complete this topic Insurance Care Teams Assistant Store Manager Relationship Specialty Start Date End Date Provider, None [place] PCP - General 09/28/21
--- NOTE | 2024-12-01 17:28 | ED_ITS ---
HPI - Headache General Chief Complaint: Headache Stated Complaint: migraine Time Seen by Provider: 12/01/24 16:11 Source: patient Mode of arrival: ambulatory Limitations: no limitations History of Present Illness HPI Narrative: PATIENT IS A 49-YEAR-OLD FEMALE WITH A SIGNIFICANT PAST MEDICAL HISTORY THAT PRESENTS TODAY FOR A MIGRAINE HEADACHE. PATIENT THINKS SHE STARTED OFF A TENSION HEADACHE AND THEN WENT TO A MIGRAINE HEADACHE IS ALL AROUND HER HEAD NOW. SHE STATES HER PAIN IS 8 IN 10. SHE SAYS SHE USES A MIGRANS OR NOT SHE IS ON ABOUT 1 AND A YEAR. SHE SAYS THIS IS VERY PAINFUL AND SHE HAS RECESSED SCHEDULE A AND HER SHE CANNOT TAKE ANY MEDICATION BECAUSE SHE CAN NOT HOLD ANYTHING DOWN BECAUSE SHE IS SO NAUSEATED. elicited complaint: migraine Pertinent past history: migraines Onset (ago): day(s) Onset description: gradually Location: diffuse Severity: severe Pain scale (0-10): 8 Quality & Timing: aching and throbbing Exacerbating factors: exertion Relieving factors: nothing Context: occurred at rest and occurred with exertion/activity Related Data Home Medications ?Medication ?Instructions ?Recorded ?Confirmed ?Last Taken ?Type No Home Medications 12/01/24 12/01/24 Unknown History Allergies Allergy/AdvReac Type Severity Reaction Status Date / Time Penicillins Allergy Unknown Unknown Verified 12/01/24 17:07 Review of Systems Review of Systems: All systems reviewed & are unremarkable except as noted in HPI and below Constitutional: Constitutional: Reports as per HPI Eyes: Eyes: Reports no additional eye complaints ENT: Reports system reviewed and no additional complaints, except as documented Cardiovascular: Cardiovascular: Reports no additional cardiovascular complaints Respiratory: Respiratory: Reports no additional respiratory complaints Gastrointestinal: Gastrointestinal: Reports no additional gastrointestinal complaints Genitourinary: Genitourinary: Reports no additional female genitourinary complaints Musculoskeletal: Musculoskeletal: Reports no additional musculoskeletal complaints Integumentary/Breasts: Skin/Breast: Reports system reviewed and no additional complaints, except as docu Neurologic: Reports system reviewed and no additional complaints, except as documented Psychiatric: Psychiatric: Reports no additional psychiatric complaints Endocrine: Endocrine: Reports no additional endocrine complaints Hematologic/Lymphatic: Hematologic/Lymphatic: Reports no additional hematologic/lymphatic complaints Allergic/Immunologic: Allergic/Immunologic: Reports no additional allergic/immunologic complaints PMFSH Past Medical History Medical History Migraine Family History Family History Mother Diabetes mellitus Myocardial infarction Father No problems noted. Social History Social History Smoking packs per day: 1 Smoking cigarettes per day: 20.0 Years smoked: 36 Smoking pack-years: 36.00 Smoking status: Current every day smoker Tobacco type: cigarettes Second hand tobacco smoke exposure: Yes Alcohol intake: current Drinks per week: 1 Substance use: never Substance use type: does not use Do You Feel Safe in your Home?: Yes Lack of Transportation: No Lack of Food: Never True Current Housing: I Have Housing Concerned About Future Housing: No Difficulty Paying Gas/Electric Bills: No Difficulty Paying for Meds: No Currently Unemployed: No Education: Trade/Vocational Certificate Difficulty w/ Childcare or Family Care: No Spiritual care concerns: No Exam Const: General: healthy appearing Nutritional Appearance: well nourished Orientation/consciousness: patient oriented x3 HENMT: Head: normal to inspection Ears: external ears normal Face/No se/Sinus: Normal external nose present Face and sinus: normal facial exam Mouth: Yes Normal oral and palatal mucosa present Teeth and gingiva: dentition normal Throat: posterior oropharynx normal Eyes: Conjunctivae: conjunctivae normal Pupils: Equal, round and reactive pupils present EOM: EOMs intact bilaterally Direct Ophthalmoscopy: no photophobia Neck: Neck: normal visual inspection Chest: Chest palpation & inspection: normal inspection of the chest Resp: Effort & Inspection: normal respiratory effort Auscultation: clear to auscultation bilaterally Cardio: Rate: regular rate Rhythm: regular rhythm GI: GI Palp: Yes Soft to palpation Back/Spine/Pelvis: Back: no CVA tenderness Skin: General skin exam: normal color Rashes: no rashes Wounds: no wounds Neuro: General: patient oriented x3 Cranial nerves: Yes Nystagmus not present Speech: normal speech Gait exam (Neuro): Normal gait present Extrem: General: normal to inspection Psych: Mental Status: mental status grossly normal Affect: normal affect Attitude: cooperative Course Vital Signs Vital signs: Vital Signs Temperature 98.1 F 12/01/24 16:10 Pulse Rate 98 12/01/24 16:10 Respiratory Rate 18 12/01/24 16:10 Blood Pressure 160/82 H 12/01/24 16:10 Pulse Oximetry 97 12/01/24 16:10 Oxygen Delivery Room Air 12/01/24 16:10 Temperature 98.1 F 12/01/24 16:10 Pulse Rate 98 12/01/24 16:10 Respiratory Rate 18 12/01/24 16:10 Blood Pressure 160/82 H 12/01/24 16:10 Pulse Oximetry 97 12/01/24 16:10 Oxygen Delivery Room Air 12/01/24 16:10 MDM - Headache MDM Narrative Medical decision making narrative: PATIENT HAS HISTORY OF MIGRAINE HEADACHES AND FEELS LIKE THIS DEFINITELY IS A MIGRAINE. SHE SAYS HER PAIN IS ABOUT A 8 AND 9 AT 10. WORKUP FOR HER MIGRAINE COCKTAIL VALIUM DEXAMETHASONE AND TORADOL AND WILL GIVE HER SOME ZOFRAN FOR THE NAUSEA ALL IM. SHE STATES IT HAS HELPED A LOT AND HER PAIN IS DOWN TO A 3/10. SHE CAN SAFELY BE DISCHARGED HOME NOW. Differential Diagnosis Differential diagnosis: Likely migraine Medical Records Attestation: I reviewed the patient's medical records. Lab Data Attestation: I reviewed the patient's lab results. Discharge Plan Discharge Clinical Impression: Migraine Patient Disposition: Home Condition: Stable Instructions: Migraine Headache (ED) Patient Language: Nigerian Prescriptions: No Action No Home Medications Follow-up/Referrals: Royer Alberto MD [Primary Care Provider] - Time of Disposition: 17:40
[2024-12-01 18:04] VITALS: BP 139/70; PULSE 98; RESP 16; TEMP 36.5; O2SAT 96
== END 2024-12-01 18:05 | disposition home or self-care (01) ==
PROVIDERS: Emergency Provider Family Medicine; PCP Family Medicine
DX: G43.909 Migraine, unspecified, not intractable, without status migrainosus (principal); F17.210 Nicotine dependence, cigarettes, uncomplicated
CPT/HCPCS: 96372; 99284; J1100; J1885; J2405; J3360

== ENCOUNTER 2025-02-19 15:12 | Outpatient (CLI) | payer BC, SELFPAY ==
--- NOTE | ~2025-02-19 | XR_ITS ---
EXAMINATION: XR chest 2V Exam Date/Time: 02/19/2025 15:20 CDT HISTORY: Acute Sinusitis Comparison: 08/14/2024, 08/12/2024. RESULT: Lines, tubes, and devices: None. Lungs and pleura: Clear. Cardiomediastinal silhouette: Stable. Other: No acute osseous or upper abdominal finding. Amorphous calcification over the right humeral h ead. IMPRESSION: No acute cardiopulmonary process. Reviewed, dictated and finalized at location K.
--- OUTSIDE RECORDS SUMMARY | 2025-02-19 15:15 | XMS_ITS | Clinical Summary ---
Author Organization [facility] Address [facility] [place] [address] Care Team Providers Care Loom Fixer Name Role Phone None, Provider MD Primary [...] 1:29 PM CDT Height 160 cm (5' 3) 03/06/2021 1:29 PM CDT Body Mass Index [...] 19+ 3-dose series) 1993 Cervical Cancer Screening Pa p with HPV Testing (Age 30 to 64) Every 5 Years 2004 Cervical Cancer Screening wi th HPV 2004 Mammogram Screening 2014 COVID-19 Vaccine (3 - 2023-2 5 season) 2024 08/11/2020, 07/21/2020 Pneumococcal Vaccine: 50+ Years (1 of 1 - PCV) 2024 Zoster Vaccines (1 of 2) 2024 Meningococcal B Vaccine Aged Out No l onger eligible based on patient's age to complete this topic Meningococcal Vaccine Aged Out No maximilian michelle eligible based on patient's age to complete this topic RSV Immunizations Under 20 Months Aged Out No longer eligible b ased on patient's age to complete this topic Care Teams Loom Fixer Relationship Specialty Start Date End Date None, Provider, PCP - General 03/06/21
--- OUTSIDE RECORDS SUMMARY | 2025-02-19 15:15 | XMS_ITS | Clinical Summary ---
Author Organization [facility] Address [address] [place] [address] Phone Care Team Providers Care Production Control Planner Name Role Phone Provider, None Primary Care [...] Cervical Cancer Screening (CCS) 2004 HPV/Cotest 2004 Cologuard 2019 Colonoscopy 2019 Colorectal Cancer Screening 2019 Immunochemical Fecal Occult Blood 2019 SARS-COV-2 Immunization (3 - 2023- season) 2024 08/11/2020, 07/21/2020 Pneumococcal Immunization (5 0+ years) (1 of 1 - PCV) 2024 Zoster Immunization (1 of 2) 2024 Influenza Immunization (#1) 2025 Respiratory Syncytial Virus (RSV) Immunization (Adult) (1 - 1-dose 75+ series) 2049 Human Papillomavirus (HPV) Immunization Aged Out No longer eligible b ased on patient's age to complete this topic Meningococcal Immunization (ACWY) Aged Out No longer eligible b ased on patient's age to complete this topic Rotavirus Immunization Aged Out No lo nger eligible based on patient's age to complete this topic Insurance Care Teams Production Control Planner Relationship Specialty Start Date End Date Provider, None [place] PCP - General 09/28/21
== END 2025-02-19 15:13 | disposition home or self-care (01) ==
LOC: CHSIMG 15:13
PROVIDERS: PCP Family Medicine; Visit Provider Family Medicine
DX: J01.90 Acute sinusitis, unspecified (principal)
CPT/HCPCS: 71046